=== PATIENT | male | born 1930 | race Caucasian/White ===

== ENCOUNTER 2018-04-10 15:36 | Inpatient (IN) | payer MEDICARE, OTHER ==
--- NOTE | 2018-04-10 15:44 | EDM.PDOC ---
ED HPI GENERAL MEDICAL PROBLEM - General Chief Complaint: General Stated Complaint: [facility] Time Seen by Provider: 04/10/18 15:43 Source of Information: Reports: Patient, EMS, Provider, RN Notes Reviewed - History of Present Illness INITIAL COMMENTS - FREE TEXT/NARRATIVE: 88-year-old male has been brought here by ambulance for planned hospital admission. 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 He was evaluated here in this ED, transferred to [place] in after what sounds like about a 4 day admission back to [facility] in somewhat improved condition. 2 daughters that are here state that since then he is become progressively weaker and now for the last several days just wants to lay in bed and sleep he did have a clinic visit this morning with his normal regular equal provider who did have lab work drawn. The labs did come back a while ago showing marketed dehydration, renal insufficiency with creatinine rising from normal baseline of just over 1 up to 3.2. UA and also elevated at 114. White blood count elevated at 24,800 with no obvious source for infection. On arrival to ED he is arousable but prefers to just lie with his eyes closed letting his daughters do most of the talking. He does deny headache chest or abdominal discomfort. There' s been no recent vomiting or diarrhea. - Related Data Allergies Allergy/AdvReac Type Severity Reaction Status Date / Time No Known Allergies Allergy Verified 04/10/18 15:46 Home Meds: Home Meds Allopurinol [Zyloprim] 100 mg PO DAILY 04/01/18 [History] Aspirin [Halfprin] 81 mg PO DAILY 04/01/18 [History] Cholecalciferol (Vitamin D3) [Vitamin D3] 1,000 unit PO DAILY 04/01/18 [History] Glimepiride [Amaryl] 2 mg PO DAILY 04/01/18 [History] Insulin Glargine,Hum.Rec.Anlog [Lantus Solostar] 19 units SQ DAILY 04/01/18 [ History] Multivitamin with Minerals [Multivitamins with Minerals] 1 each PO DAILY [History] Zinc Acetate [Galzin] 50 mg PO DAILY 04/01/18 [History] Insulin Aspart [Novolog] 4 unit SQ DAILY 04/10/18 [History] Metoprolol Succinate 200 mg PO DAILY 04/10/18 [History] Sennosides/Docusate Sodium [Senna Plus Tablet] 1 tab PO DAILY PRN 04/10/18 [ History] atorvaSTATin [Lipitor] 40 mg PO BEDTIME 04/10/18 [History] Past Medical History Cardiovascular History: Reports: Heart Murmur, Hypertension Genitourinary History: Reports: Renal Disease Musculoskeletal History: Reports: Gout, Other (See Below) Other Musculoskeletal History: Pagets disease Endocrine/Metabolic History: Reports: Diabetes, Type II - Past Surgical History GI Surgical History: Reports: Hernia, Inguinal Social & Family History - Caffeine Use Caffeine Use: Reports: None ED ROS GENERAL - Review of Systems Review Of Systems: See Below Constitutional: Denies: Fever, Chills HEENT: Denies: Throat Pain Respiratory: Denies: Shortness of Breath Cardiovascular: Denies: Chest Pain GI/Abdominal: Denies: Abdominal Pain, Diarrhea, Vomiting Musculoskeletal: Reports: No Symptoms Skin: Denies: Rash Neurological: Reports: Weakness (Generalized in addition to right-sided from stroke 9 days ago). Denies: Headache ED EXAM, GENERAL - Physical Exam Exam: See Below General Appearance: Other (Drowsy, arousable to voice, does answer simple questions) Eye Exam: Bilateral Eye: PERRL Throat/Mouth: Other (Oral mucosa is quite dry) Head: Atraumatic Neck: Supple. No: Lymphadenopathy (L), Lymphadenopathy (R) Respiratory/Chest: No Respiratory Distress, Lungs Clear, Normal Breath Sounds Cardiovascular: Tachycardia, Irregularly Irregular GI/Abdominal: Tender (Mild tenderness upper mid abdomen, lower abdomen nontender ) Back Exam: No: CVA Tenderness (L), CVA Tenderness (R) Extremities: No: Pedal Edema, Leg Pain, Increased Warmth, Redness Neurological: Other (Drowsy but arousable verbally, speech is mildly slurred,he does respond to simple commands.) Skin Exam: Warm, Dry, Normal Color EKG INTERPRETATION EKG Date: 04/10/18 Rhythm: A-Fib Rate (Beats/Min): 113 P-Wave: Absent QRS: Normal ST-T: Normal Course - Vital Signs Last Recorded V/S: Last Vital Signs Temp 97.6 F 04/10/18 15:41 Pulse 138 H 04/10/18 15:41 Resp 25 H 04/10/18 15:41 BP Pulse Ox 96 04/10/18 15:41 - Orders/Labs/Meds Orders: Active Orders 24 hr Category Date Time Status EKG Documentation Completion [RC] ASDIRECTED Care 04/10/18 15:58 Active Chest 1V Frontal [CR] Stat Exams 04/10/18 16:49 Taken CULTURE BLOOD [BC] Stat Lab 04/10/18 17:35 Received CULTURE BLOOD [BC] Stat Lab 04/10/18 17:40 Received LACTIC ACID [CHEM] Stat Lab 04/10/18 17:35 Received MYCOPLASMA PNEUMONIAE IGM AB [CHEM] Stat Lab 04/10/18 17:35 Received Sodium Chloride 0.45% 1,000 ml Med 04/10/18 16:15 Active IV ASDIRECTED Sodium Chloride 0.9% [Normal Saline] 1,000 ml Med 04/10/18 17:23 Active IV ONETIME cefTRIAXone [Rocephin] 2 gm Med 04/10/18 17:26 Active Sodium Chloride 0.9% [Normal Saline] 100 ml IV ONETIME Blood Culture x2 Reflex Set [OM.PC] Stat Oth 04/10/18 17:22 Ordered EKG 12 Lead [EK] Stat Ther 04/10/18 15:58 Ordered Medication Orders Sodium Chloride (Sodium Chloride 0.45%) 1,000 mls @ 500 mls/hr IV ASDIRECTED GIOVANNY Last Admin: 04/10/18 16:19 Dose: 500 mls/hr Sodium Chloride (Normal Saline) 1,000 mls @ 999 mls/hr IV ONETIME ONE Stop: 04/10/18 18:23 Ceftriaxone Sodium 2 gm/ (Sodium Chloride) 100 mls @ 100 mls/hr IV ONETIME ONE Stop: 04/10/18 18:25 Last Admin: 04/10/18 17:45 Dose: 100 mls/hr Meds: Medications Generic Name Dose Route Start Last Admin Trade Name Freq PRN Reason Stop Dose Admin Sodium Chloride 1,000 mls @ 500 mls/hr 04/10/18 16:15 04/10/18 16:19 Sodium Chloride 0.45% IV 500 mls/hr ASDIRECTED GIOVANNY Administration Sodium Chloride 1,000 mls @ 999 mls/hr 04/10/18 17:23 Normal Saline IV 04/10/18 18:23 ONETIME ONE Ceftriaxone Sodium 2 gm/ 100 mls @ 100 mls/hr 04/10/18 17:26 04/10/18 17:45 Sodium Chloride IV 04/10/18 18:25 100 mls/hr ONETIME ONE Administration Discontinued Medications Generic Name Dose Route Start Last Admin Trade Name Claudette PRN Reason Stop Dose Admin Sodium Chloride 1,000 mls @ 999 mls/hr 04/10/18 16:54 04/10/18 16:55 Normal Saline IV 04/10/18 17:54 100 mls/hr ONETIME ONE Administration - Re-Assessments/Exams Free Text/Narrative Re-Assessment/Exam: 04/10/18 18:01 We have given a 250 mL bolus of one half normal saline over the past couple of hours. We are currently running a normal saline at 100 per hour. He is moderately dehydrated with renal insufficiency. Labs have been reviewed from what was drawn at [facility]. Of note also is that his white blood count was elevated at 24,800. Her chest x-ray has been done, UA has been ordered. I discussed this with Dr. Rey, hospitalist postal service sectional center manager who does accept patient for admission. 04/10/18 18:05. Chest x-ray does show markedly elevated left diaphragm reviewing prior chest x-ray from 9 days ago diaphragm was markedly elevated at that time as well, impossible to rule out infiltrates left lower lung field. Awaiting Radiologist report. Departure - Departure Time of Disposition: 16:59 Disposition: Admitted As Inpatient 65 Condition: Serious Clinical Impression: Dehydration, Renal insufficiency - Discharge Information Forms: ED Department Discharge ED Communication - Discussed Case With (1) Discussed Case With (1): Admitting Provider (Dr Rey, decision to admit at about 17:15.) - My Orders Last 24 Hours: My Active Orders 04/10/18 15:58 EKG Documentation Completion [RC] ASDIRECTED EKG 12 Lead [EK] Stat 04/10/18 16:15 Sodium Chloride 0.45% 1,000 ml IV ASDIRECTED 04/10/18 16:49 Chest 1V Frontal [CR] Stat 04/10/18 17:26 cefTRIAXone [Rocephin] 2 gm Sodium Chloride 0.9% [Normal Saline] 100 ml IV ONETIME 04/10/18 17:35 LACTIC ACID [CHEM] Stat - Assessment/Plan Last 24 Hours: My Active Orders 04/10/18 15:58 EKG Documentation Completion [RC] ASDIRECTED EKG 12 Lead [EK] Stat 04/10/18 16:15 Sodium Chloride 0.45% 1,000 ml IV ASDIRECTED 04/10/18 16:49 Chest 1V Frontal [CR] Stat 04/10/18 17:26 cefTRIAXone [Rocephin] 2 gm Sodium Chloride 0.9% [Normal Saline] 100 ml IV ONETIME 04/10/18 17:35 LACTIC ACID [CHEM] Stat
[2018-04-10] MEDS ORDERED: Sodium Chloride 0.45% 1,000 ML IV SCH (16:15)
[2018-04-10] MEDS ORDERED: Sodium Chloride 0.9% 1,000 ML IV ONE ×2 (16:54→17:23)
[2018-04-10] MEDS ORDERED: cefTRIAXone 2 GM in Sodium Chloride 0.9% 100 ML IV ONE (17:26)
--- NOTE | 2018-04-10 19:04 | PCM.HP ---
H&P History of Present Illness - General Date of Service: 04/10/18 Admit Problem/Dx: Admission Diagnosis/Problem Admission Diagnosis/Problem Sepsis Source of Information: Provider History Limitations: Reports: No Limitations - History of Present Illness Initial Comments - Free Text/Narative: 88 year old male who apparently had a hemorrhagic stroke presents with generalized weakness, malaise. The duration is several days. 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 The patient has a history of A Fib but has had occasional bouts of a rapid ventricular rate. The patient was apparently treated in [place], the details are not currently available. However it appears that he did not require an intervention. Onset of Symptoms: Reports: Unknown/Unsure Duration of Symptoms: Reports: Day(s):, Getting Worse Location: Reports: Generalized Severity: Moderate Improves with: Reports: None Worsens with: Reports: None Context: Reports: Sick Contact (unknown) Associated Symptoms: Reports: Cough, Loss of Appetite, Shortness of Breath, Weakness suprapubic Pain Score (Numeric/FACES): 3 - Related Data Allergies/Adverse Reactions: Allergies Allergy/AdvReac Type Severity Reaction Status Date / Time No Known Allergies Allergy Verified 04/10/18 15:46 Home Medications: Home Meds Allopurinol [Zyloprim] 100 mg PO DAILY 04/01/18 [History] Aspirin [Halfprin] 81 mg PO DAILY 04/01/18 [History] Cholecalciferol (Vitamin D3) [Vitamin D3] 1,000 unit PO DAILY 04/01/18 [History] Glimepiride [Amaryl] 2 mg PO DAILY 04/01/18 [History] Insulin Glargine,Hum.Rec.Anlog [Lantus Solostar] 19 units SQ DAILY 04/01/18 [ History] Multivitamin with Minerals [Multivitamins with Minerals] 1 each PO DAILY [History] Zinc Acetate [Galzin] 50 mg PO DAILY 04/01/18 [History] Insulin Aspart [Novolog Flexpen] 4 unit SQ DAILY 04/10/18 [History] Sennosides/Docusate Sodium [Senna Plus Tablet] 1 tab PO DAILY PRN 04/10/18 [ History] atorvaSTATin [Lipitor] 40 mg PO BEDTIME 04/10/18 [History] Acetaminophen [Tylenol] 650 mg PO Q6H PRN #60 tablet 04/16/18 [Rx] Diltiazem IR [Cardizem] 30 mg PO Q6HR #120 tablet 04/16/18 [Rx] Furosemide [Lasix] 20 mg PO DAILY #40 tablet 04/16/18 [Rx] Magnesium Oxide 400 mg PO BID #30 tablet 04/16/18 [Rx] Metoprolol Tartrate [Lopressor] 100 mg PO Q12HR #60 tablet 04/16/18 [Rx] Potassium Chloride [Klor-Con M20] 20 meq PO DAILY #40 tab.er 04/16/18 [Rx] Saccharomyces Boulardii [Florastor] 500 mg PO DAILY #60 cap 04/16/18 [Rx] levoFLOXacin [Levaquin] 250 mg PO Q24H #7 tablet 04/16/18 [Rx] Past Medical History Cardiovascular History: Reports: Heart Murmur, Hypertension Other Cardiovascular History: NSTEMI Genitourinary History: Reports: Renal Disease Musculoskeletal History: Reports: Gout, Other (See Below) Other Musculoskeletal History: Pagets disease Neurological History: Reports: Other (See Below) Other Neuro History: encephalopathy Endocrine/Metabolic History: Reports: Diabetes, Type II - Past Surgical History GI Surgical History: Reports: Hernia, Inguinal Social & Family History - Tobacco Use Smoking Status *Q: Never Smoker - Caffeine Use Caffeine Use: Reports: None - Recreational Drug Use Recreational Drug Use: No H&P Review of Systems - Review of Systems: Review Of Systems: See Below General: Reports: Weakness HEENT: Reports: No Symptoms Pulmonary: Reports: No Symptoms Cardiovascular: Reports: No Symptoms Gastrointestinal: Reports: No Symptoms Genitourinary: Reports: No Symptoms Musculoskeletal: Reports: No Symptoms Skin: Reports: No Symptoms Psychiatric: Reports: Confusion Neurological: Reports: Other (hard of hearing) Hematologic/Lymphatic: Reports: No Symptoms Immunologic: Reports: No Symptoms Exam - Exam Exam: See Below - Vital Signs Vital Signs: Last Vital Signs Temp 36.4 C 04/10/18 15:41 Pulse 138 H 04/10/18 15:41 Resp 25 H 04/10/18 15:41 BP Pulse Ox 96 04/10/18 15:41 Weight: 61.235 kg - Exam Quality Assessment: Supplemental Oxygen, DVT Prophylaxis General: Lethargic HEENT: EOMI, Nares Patent, Posterior Pharynx Clear, Pupils Equal, Pupils Reactive, PERRLA Neck: Trachea Midline Lungs: Normal Respiratory Effort, Decreased Breath Sounds Cardiovascular: Regular Rate, Irregular Rhythm GI/Abdominal Exam: Normal Bowel Sounds, Soft, Non-Tender, No Organomegaly, No Distention (Male) Exam: Deferred Rectal (Males) Exam: Deferred Back Exam: Normal Inspection Extremities: Normal Inspection, Non-Tender, Normal Capillary Refill Skin: Warm Neurological: Cranial Nerves Intact Neuro Extensive - Mental Status: Slow Response to Commands Neuro Extensive - Motor, Sensory, Reflexes: CN II-XII Intact - Patient Data Lab Results Last 24 hrs: Laboratory Results - last 24 hr 04/10/18 04/10/18 Range/Units 17:35 17:57 Lactic Acid 1.9 (0.4-2.0) mmol/L Urine Color Yellow (Yellow) Urine Appearance Clear (Clear) Urine pH 6.0 (5.0-8.0) Ur Specific [place] 1.020 (1.005-1.030) Urine Protein 2+ H (Negative) Urine Glucose (UA) Trace H (Negative) Urine Ketones Negative (Negative) Urine Occult Blood 3+ H (Negative) Urine Nitrite Negative (Negative) Urine Bilirubin Negative (Negative) Urine Urobilinogen 0.2 (0.2-1.0) Ur Leukocyte Esterase Negative (Negative) Urine RBC 10-20 H (0-5) /hpf Urine WBC 0-5 (0-5) /hpf Ur Epithelial Cells 0-5 (0-5) /hpf Urine Bacteria Not seen (FEW) /hpf Urine Mucus Not seen (FEW) /hpf Result Diagrams: 04/15/18 05:45 04/16/18 05:18 - Problem List (1) Hemorrhagic cerebrovascular accident (CVA) SNOMED Code(s): 079315877 ICD Code: I61.9 - NONTRAUMATIC INTRACEREBRAL HEMORRHAGE, UNSPECIFIED Status : Acute (2) Leukocytosis SNOMED Code(s): 392134789, 096332674 ICD Code: D72.829 - ELEVATED WHITE BLOOD CELL COUNT, UNSPECIFIED Status: Acute (3) Diabetes mellitus SNOMED Code(s): 57337374 ICD Code: E11.9 - TYPE 2 DIABETES MELLITUS WITHOUT COMPLICATIONS Status: Acute (4) Gout SNOMED Code(s): 16405871 ICD Code: M10.9 - GOUT, UNSPECIFIED Status: Acute (5) Altered mental status SNOMED Code(s): 192306065 ICD Code: R41.82 - ALTERED MENTAL STATUS, UNSPECIFIED Status: Acute Qualifiers: Altered mental status type: stupor Qualified Code(s): R40.1 - Stupor (6) Renal insufficiency SNOMED Code(s): 937440460, 845770448 ICD Code: N28.9 - DISORDER OF KIDNEY AND URETER, UNSPECIFIED Status: Acute Problem List Initiated/Reviewed/Updated: Yes Orders Last 24hrs: Active Orders 24 hr Category Date Time Status Admission Status [Patient Status] [ADT] Routine ADT 04/10/18 18:26 Active EKG Documentation Completion [RC] ASDIRECTED Care 04/10/18 15:58 Active Insert Ramires Catheter [Insert Urinary Catheter] [OM.PC] Care 04/10/18 17:55 Ordered Stat Urinary Catheter Assessment [RC] ASDIRECTED Care 04/10/18 17:55 Active Chest 1V Frontal [CR] Stat Exams 04/10/18 16:49 Taken CULTURE BLOOD [BC] Stat Lab 04/10/18 17:35 Received CULTURE BLOOD [BC] Stat Lab 04/10/18 17:40 Received MYCOPLASMA PNEUMONIAE IGM AB [CHEM] Stat Lab 04/10/18 17:35 Received UA W/MICROSCOPIC [URIN] Stat Lab 04/10/18 17:57 Ordered Sodium Chloride 0.45% 1,000 ml Med 04/10/18 16:15 Active IV ASDIRECTED Blood Culture x2 Reflex Set [OM.PC] Stat Oth 04/10/18 17:22 Ordered EKG 12 Lead [EK] Stat Ther 04/10/18 15:58 Ordered Medication Orders Sodium Chloride (Sodium Chloride 0.45%) 1,000 mls @ 500 mls/hr IV ASDIRECTED GIOVANNY Last Admin: 04/10/18 16:19 Dose: 500 mls/hr Assessment/Plan Comment:: Impression: Acute mental status change with acute renal failure Query post obstruction S/P CVA 9 days [employer], hemorrhagic on low dose ASA S/P Ramires insertion for accurate I/Os A fib with controlled vent rate, ASA Infectious work up initiated; suspected infiltarte in LLL Received Rocephin empirically in the ED Chronic Diabetes mellitus, elevated BS on oral hypoglycemics HLD on Crestor Plan: IVF Continue Rocephin Follow infectious results Correct electrolytes; screen for sepsis Droplet isolation Home meds Daily labs Lopressor oral/IVP prn Consult PT/OT/CM Consult SP, confirm diet
[2018-04-10] MEDS ORDERED: Albuterol/Ipratropium 3.0-0.5 MG/3 ML Neb Soln NEB PRN (19:12)
[2018-04-10] MEDS ORDERED: 50% Dextrose in Water 50 ML Syringe IVPUSH PRN (19:13)
[2018-04-10] MEDS: Rosuvastatin 10 MG Tab PO SCH (21:53)
[2018-04-10] MEDS: Insulin Lispro 100 Unit/ML 3 ML KwikPen SUBCUT SCH (21:57)
[2018-04-10] MEDS ORDERED: Sodium Chloride 0.9% 1,000 ML IV SCH (22:45)
[2018-04-10] MEDS: Heparin Sodium 5,000 Units/ML Vial SUBCUT SCH (22:49)
[2018-04-10] MEDS: Metoprolol Tartrate 5 MG/5 ML SDV IVPUSH PRN (22:49)
[2018-04-11] MEDS: Insulin Lispro 100 Unit/ML 3 ML KwikPen SUBCUT SCH ×4 (07:27→21:39)
[2018-04-11] MEDS: Heparin Sodium 5,000 Units/ML Vial SUBCUT SCH ×3 (07:30→23:38)
[2018-04-11] MEDS ORDERED: Sodium Chloride 0.9% 1,000 ML IV SCH (07:30)
[2018-04-11] MEDS: Metoprolol Tartrate 5 MG/5 ML SDV IVPUSH PRN ×3 (07:48→23:38)
[2018-04-11] MEDS ORDERED: ZINC ACETATE 50 MG PO SCH (09:00)
--- NOTE | 2018-04-11 09:05 | CR ---
Chest: Portable view of the chest was obtained. Comparison: Previous chest x-ray of 04/10/18. Elevated left hemidiaphragm is seen. This causes atelectasis within the left base which is stable. Lungs otherwise are clear. Heart size appears within normal limits for technique. Tortuous thoracic aorta is seen. Scoliosis noted within the spine with osteopenia. Slightly abnormal mineralization of the left scapula is noted which presumably is due to old trauma. Impression: 1. Mild left basilar atelectasis. Other incidental findings. 2. Nothing acute is suspected. Diagnostic code #2
[2018-04-11] MEDS: Diltiazem 125 MG in Sodium Chloride 0.9% 100 ML IV SCH (09:45)
[2018-04-11] MEDS: Glimepiride 2 MG Tab PO SCH (10:02)
[2018-04-11] MEDS: Allopurinol 100 MG Tab PO SCH (10:02)
[2018-04-11] MEDS: Aspirin 81 MG Tab.EC PO SCH (10:02)
[2018-04-11] MEDS ORDERED: Lactated Ringers 1,000 ML IV SCH ×2 (10:30→17:45)
[2018-04-11] MEDS ORDERED: Magnesium Sulfate/Water 2 GM in Premix Bag 1 BAG IV ONE (10:30)
--- NOTE | 2018-04-11 13:32 | CR ---
Chest: Portable view of the chest was obtained. Comparison: Prior chest x-ray of 04/01/18. Elevated left hemidiaphragm is seen with mild compressive type atelectasis which is stable from prior exam. Lungs otherwise are clear. Bony structures are osteopenic. Tortuous thoracic aorta is seen. Deformity of the left scapula is seen which appears chronic. Osteopenia is noted. Degenerative change within the right shoulder is seen. Impression: 1. Stable findings as noted above. Nothing acute is seen. Diagnostic code #2
--- NOTE | 2018-04-11 17:18 | PCM.PN ---
- General Info Date of Service: 04/11/18 Functional Status: Reports: Urinating - Review of Systems General: Reports: Weakness, Fatigue HEENT: Reports: No Symptoms Pulmonary: Reports: Shortness of Breath Cardiovascular: Reports: No Symptoms Gastrointestinal: Reports: No Symptoms Genitourinary: Reports: No Symptoms Musculoskeletal: Reports: No Symptoms Skin: Reports: No Symptoms Neurological: Reports: No Symptoms Psychiatric: Reports: No Symptoms - Patient Data Vitals - Most Recent: Last Vital Signs Temp 36.7 C 04/11/18 17:00 Pulse 117 H 04/11/18 15:42 Resp 16 04/11/18 17:00 BP 116/77 04/11/18 17:00 Pulse Ox 98 04/11/18 17:00 Weight - Most Recent: 60.509 kg I&O - Last 24 Hours: Intake & Output 04/11/18 04/11/18 04/11/18 06:59 14:59 22:59 Intake Total 796 280 5118 Output Total 1250 426 360 Balance -319 -340 751 Lab Results Last 24 Hours: Laboratory Results - last 24 hr 04/10/18 04/10/18 04/10/18 Range/Units 17:35 17:35 17:57 WBC (4.23-9.07) K/mm3 RBC (4.63-6.08) M/mm3 Hgb (13.7-17.5) gm/L Hct (40.1-51.0) % MCV (79.0-92.2) fl MCH (25.7-32.2) pg MCHC (32.2-35.5) g/dl RDW Std Deviation (35.1-43.9) fL Plt Count (163-337) K/mm3 MPV (9.4-12.3) fl Neut % (Auto) (34.0-67.9) % Lymph % (Auto) (21.8-53.1) % Iron % (Auto) (5.3-12.2) % Eos % (Auto) (0.8-7.0) Baso % (Auto) (0.1-1.2) % Neut # (Auto) (1.78-5.38) K/mm3 Lymph # (Auto) (1.32-3.57) K/mm3 Iron # (Auto) (0.30-0.82) K/mm3 Eos # (Auto) (0.04-0.54) K/mm3 Baso # (Auto) (0.01-0.08) K/mm3 Manual Slide Review Sodium (136-145) mEq/L Potassium (3.5-5.1) mEq/L Chloride (98-107) mEq/L Carbon Dioxide (21-32) mEq/L Anion Gap (5-15) BUN (7-18) mg/dL Creatinine (0.7-1.3) mg/dL Est Cr Clr Drug Dosing mL/min Estimated GFR (MDRD) (>60) mL/min BUN/Creatinine Ratio (14-18) Glucose (83-115) mg/dL POC Glucose (83-110) mg/dL Hemoglobin A1c (4.50-6.20) % Lactic Acid 1.9 (0.4-2.0) mmol/L Calcium (8.5-10.1) mg/dL C-Reactive Protein (<1.0) mg/dL NT-Pro-B Natriuret Pep (0-450) pg/mL TSH 3rd Generation (0.358-3.74) uIU/mL Urine Color Yellow (Yellow) Urine Appearance Clear (Clear) Urine pH 6.0 (5.0-8.0) Ur Specific [place] 1.020 (1.005-1.030) Urine Protein 2+ H (Negative) Urine Glucose (UA) Trace H (Negative) Urine Ketones Negative (Negative) Urine Occult Blood 3+ H (Negative) Urine Nitrite Negative (Negative) Urine Bilirubin Negative (Negative) Urine Urobilinogen 0.2 (0.2-1.0) Ur Leukocyte Esterase Negative (Negative) Urine RBC 10-20 H (0-5) /hpf Urine WBC 0-5 (0-5) /hpf Ur Epithelial Cells 0-5 (0-5) /hpf Urine Bacteria Not seen (FEW) /hpf Urine Mucus Not seen (FEW) /hpf Mycoplasma pneumon IgM Negative (NEGATIVE) 04/10/18 04/11/18 04/11/18 Range/Units 19:54 05:50 05:50 WBC 18.44 H (4.23-9.07) K/mm3 RBC 4.24 L (4.63-6.08) M/mm3 Hgb 13.1 L (13.7-17.5) gm/L Hct 39.2 L (40.1-51.0) % MCV 92.5 H (79.0-92.2) fl MCH 30.9 (25.7-32.2) pg MCHC 33.4 (32.2-35.5) g/dl RDW Std Deviation 48.5 H (35.1-43.9) fL Plt Count 164 (163-337) K/mm3 MPV 10.6 (9.4-12.3) fl Neut % (Auto) 88.9 H (34.0-67.9) % Lymph % (Auto) 4.3 L (21.8-53.1) % Iron % (Auto) 6.3 (5.3-12.2) % Eos % (Auto) 0.2 L (0.8-7.0) Baso % (Auto) 0.1 (0.1-1.2) % Neut # (Auto) 16.40 H (1.78-5.38) K/mm3 Lymph # (Auto) 0.80 L (1.32-3.57) K/mm3 Iron # (Auto) 1.16 H (0.30-0.82) K/mm3 Eos # (Auto) 0.03 L (0.04-0.54) K/mm3 Baso # (Auto) 0.01 (0.01-0.08) K/mm3 Manual Slide Review Normal smear Sodium 151 H (136-145) mEq/L Potassium 3.4 L (3.5-5.1) mEq/L Chloride 114 H (98-107) mEq/L Carbon Dioxide 23 (21-32) mEq/L Anion Gap 17.4 H (5-15) BUN 103 H (7-18) mg/dL Creatinine 2.2 H (0.7-1.3) mg/dL Est Cr Clr Drug Dosing 19.48 mL/min Estimated GFR (MDRD) 28 (>60) mL/min BUN/Creatinine Ratio 46.8 H (14-18) Glucose 99 (83-115) mg/dL POC Glucose 252 H (83-110) mg/dL Hemoglobin A1c (4.50-6.20) % Lactic Acid (0.4-2.0) mmol/L Calcium 7.5 L (8.5-10.1) mg/dL C-Reactive Protein 10.6 H* (<1.0) mg/dL NT-Pro-B Natriuret Pep (0-450) pg/mL TSH 3rd Generation 0.321 L (0.358-3.74) uIU/mL Urine Color (Yellow) Urine Appearance (Clear) Urine pH (5.0-8.0) Ur Specific [place] (1.005-1.030) Urine Protein (Negative) Urine Glucose (UA) (Negative) Urine Ketones (Negative) Urine Occult Blood (Negative) Urine Nitrite (Negative) Urine Bilirubin (Negative) Urine Urobilinogen (0.2-1.0) Ur Leukocyte Esterase (Negative) Urine RBC (0-5) /hpf Urine WBC (0-5) /hpf Ur Epithelial Cells (0-5) /hpf Urine Bacteria (FEW) /hpf Urine Mucus (FEW) /hpf Mycoplasma pneumon IgM (NEGATIVE) 04/11/18 04/11/18 04/11/18 Range/Units 05:50 05:50 05:50 WBC (4.23-9.07) K/mm3 RBC (4.63-6.08) M/mm3 Hgb (13.7-17.5) gm/L Hct (40.1-51.0) % MCV (79.0-92.2) fl MCH (25.7-32.2) pg MCHC (32.2-35.5) g/dl RDW Std Deviation (35.1-43.9) fL Plt Count (163-337) K/mm3 MPV (9.4-12.3) fl Neut % (Auto) (34.0-67.9) % Lymph % (Auto) (21.8-53.1) % Iron % (Auto) (5.3-12.2) % Eos % (Auto) (0.8-7.0) Baso % (Auto) (0.1-1.2) % Neut # (Auto) (1.78-5.38) K/mm3 Lymph # (Auto) (1.32-3.57) K/mm3 Iron # (Auto) (0.30-0.82) K/mm3 Eos # (Auto) (0.04-0.54) K/mm3 Baso # (Auto) (0.01-0.08) K/mm3 Manual Slide Review Sodium (136-145) mEq/L Potassium (3.5-5.1) mEq/L Chloride (98-107) mEq/L Carbon Dioxide (21-32) mEq/L Anion Gap (5-15) BUN (7-18) mg/dL Creatinine (0.7-1.3) mg/dL Est Cr Clr Drug Dosing mL/min Estimated GFR (MDRD) (>60) mL/min BUN/Creatinine Ratio (14-18) Glucose (83-115) mg/dL POC Glucose (83-110) mg/dL Hemoglobin A1c 7.30 H (4.50-6.20) % Lactic Acid 1.5 (0.4-2.0) mmol/L Calcium (8.5-10.1) mg/dL C-Reactive Protein (<1.0) mg/dL NT-Pro-B Natriuret Pep 2589 H (0-450) pg/mL TSH 3rd Generation (0.358-3.74) uIU/mL Urine Color (Yellow) Urine Appearance (Clear) Urine pH (5.0-8.0) Ur Specific [place] (1.005-1.030) Urine Protein (Negative) Urine Glucose (UA) (Negative) Urine Ketones (Negative) Urine Occult Blood (Negative) Urine Nitrite (Negative) Urine Bilirubin (Negative) Urine Urobilinogen (0.2-1.0) Ur Leukocyte Esterase (Negative) Urine RBC (0-5) /hpf Urine WBC (0-5) /hpf Ur Epithelial Cells (0-5) /hpf Urine Bacteria (FEW) /hpf Urine Mucus (FEW) /hpf Mycoplasma pneumon IgM (NEGATIVE) 04/11/18 04/11/18 Range/Units 06:36 11:22 WBC (4.23-9.07) K/mm3 RBC (4.63-6.08) M/mm3 Hgb (13.7-17.5) gm/L Hct (40.1-51.0) % MCV (79.0-92.2) fl MCH (25.7-32.2) pg MCHC (32.2-35.5) g/dl RDW Std Deviation (35.1-43.9) fL Plt Count (163-337) K/mm3 MPV (9.4-12.3) fl Neut % (Auto) (34.0-67.9) % Lymph % (Auto) (21.8-53.1) % Iron % (Auto) (5.3-12.2) % Eos % (Auto) (0.8-7.0) Baso % (Auto) (0.1-1.2) % Neut # (Auto) (1.78-5.38) K/mm3 Lymph # (Auto) (1.32-3.57) K/mm3 Iron # (Auto) (0.30-0.82) K/mm3 Eos # (Auto) (0.04-0.54) K/mm3 Baso # (Auto) (0.01-0.08) K/mm3 Manual Slide Review Sodium (136-145) mEq/L Potassium (3.5-5.1) mEq/L Chloride (98-107) mEq/L Carbon Dioxide (21-32) mEq/L Anion Gap (5-15) BUN (7-18) mg/dL Creatinine (0.7-1.3) mg/dL Est Cr Clr Drug Dosing mL/min Estimated GFR (MDRD) (>60) mL/min BUN/Creatinine Ratio (14-18) Glucose (83-115) mg/dL POC Glucose 93 178 H (83-110) mg/dL Hemoglobin A1c (4.50-6.20) % Lactic Acid (0.4-2.0) mmol/L Calcium (8.5-10.1) mg/dL C-Reactive Protein (<1.0) mg/dL NT-Pro-B Natriuret Pep (0-450) pg/mL TSH 3rd Generation (0.358-3.74) uIU/mL Urine Color (Yellow) Urine Appearance (Clear) Urine pH (5.0-8.0) Ur Specific [place] (1.005-1.030) Urine Protein (Negative) Urine Glucose (UA) (Negative) Urine Ketones (Negative) Urine Occult Blood (Negative) Urine Nitrite (Negative) Urine Bilirubin (Negative) Urine Urobilinogen (0.2-1.0) Ur Leukocyte Esterase (Negative) Urine RBC (0-5) /hpf Urine WBC (0-5) /hpf Ur Epithelial Cells (0-5) /hpf Urine Bacteria (FEW) /hpf Urine Mucus (FEW) /hpf Mycoplasma pneumon IgM (NEGATIVE) Med Orders - Current: Current Medications Albuterol/Ipratropium (Duoneb 3.0-0.5 Mg/3 Ml) 3 ml NEB QID PRN PRN Reason: Shortness of Breath Allopurinol (Zyloprim) 100 mg PO DAILY [facility] Last Admin: 04/11/18 10:02 Dose: 100 mg Aspirin (Halfprin) 81 mg PO DAILY [facility] Last Admin: 04/11/18 10:02 Dose: 81 mg Dextrose/Water (Dextrose 50% In Water) 50 ml IVPUSH ASDIRECTED PRN PRN Reason: Hypoglycemia Glimepiride (Amaryl) 2 mg PO DAILY [facility] Last Admin: 04/11/18 10:02 Dose: 2 mg Heparin Sodium (Porcine) (Heparin Sodium) 5,000 units SUBCUT Q8H [facility] Last Admin: 04/11/18 14:49 Dose: 5,000 units Ceftriaxone Sodium 2 gm/ (Sodium Chloride) 100 mls @ 100 mls/hr IV Q24H [facility] Diltiazem HCl 125 mg/ Sodium (Chloride) 125 mls @ 5 mls/hr IV TITRATE [facility]; Protocol Last Titration: 04/11/18 17:08 Dose: 10 mg/hr, 10 mls/hr Lactated Ringer's (Ringers, Lactated) 1,000 mls @ 100 mls/hr IV ASDIRECTED [facility] Last Admin: 04/11/18 10:40 Dose: 100 mls/hr Insulin Human Lispro (Humalog) 0 unit SUBCUT QIDACANDBED [facility]; Protocol Last Admin: 04/11/18 11:31 Dose: 1 units Metoprolol Tartrate (Lopressor) 5 mg IVPUSH Q4H PRN PRN Reason: Tachycardia Last Admin: 04/11/18 15:42 Dose: 5 mg Rosuvastatin Calcium (Crestor) 10 mg PO BEDTIME [facility] Last Admin: 04/10/18 21:53 Dose: 10 mg Senna/Docusate Sodium (Senna Plus) 1 tab PO DAILY PRN PRN Reason: Constipation Discontinued Medications Sodium Chloride (Sodium Chloride 0.45%) 1,000 mls @ 500 mls/hr IV ASDIRECTED [facility] Last Admin: 04/10/18 16:19 Dose: 500 mls/hr Sodium Chloride (Normal Saline) 1,000 mls @ 999 mls/hr IV ONETIME ONE Stop: 04/10/18 17:54 Last Admin: 04/10/18 16:55 Dose: 100 mls/hr Sodium Chloride (Normal Saline) 1,000 mls @ 999 mls/hr IV ONETIME ONE Stop: 04/10/18 18:23 Last Admin: 04/10/18 19:40 Dose: Not Given Ceftriaxone Sodium 2 gm/ (Sodium Chloride) 100 mls @ 100 mls/hr IV ONETIME ONE Stop: 04/10/18 18:25 Last Admin: 04/10/18 17:45 Dose: 100 mls/hr Sodium Chloride (Normal Saline) 1,000 mls @ 100 mls/hr IV ASDIRECTED [facility] Last Admin: 04/10/18 22:49 Dose: 100 mls/hr Sodium Chloride (Normal Saline) 1,000 mls @ 75 mls/hr IV ASDIRECTED [facility] Last Admin: 04/11/18 07:47 Dose: 75 mls/hr Magnesium Sulfate 2 gm/ Premix 50 mls @ 25 mls/hr IV ONETIME ONE Stop: 04/11/18 12:29 Last Admin: 04/11/18 11:00 Dose: 25 mls/hr Non-Formulary Medication (Zinc Acetate [Galzin]) 50 mg PO DAILY [facility] - Exam Quality Assessment: Supplemental Oxygen, DVT Prophylaxis General: Alert, Oriented, Cooperative, No Acute Distress HEENT: Pupils Equal, Pupils Reactive, EOMI Neck: Trachea Midline, No JVD Lungs: Normal Respiratory Effort Cardiovascular: Regular Rate, Tachycardia GI/Abdominal Exam: Normal Bowel Sounds, Soft, Non-Tender, No Organomegaly, No Distention (Male) Exam: Deferred Back Exam: Normal Inspection Extremities: Normal Inspection, Non-Tender, Normal Capillary Refill Skin: Warm Neurological: No New Focal Deficit Psy/Mental Status: Alert, Other (hard of hearingf) - Problem List Review Problem List Initiated/Reviewed/Updated: Yes - My Orders Last 24 Hours: My Active Orders 04/10/18 17:22 Blood Culture x2 Reflex Set [OM.PC] Stat 04/10/18 17:35 CULTURE BLOOD [BC] Stat 04/10/18 17:40 CULTURE BLOOD [BC] Stat 04/10/18 17:55 Insert Ramires Catheter [Insert Urinary Catheter] [OM.PC] Stat Urinary Catheter Assessment [RC] Q2HR 08/15/18 17:57 STREP PNEUMONIAE ANTIGEN [MREF] Routine 04/10/18 19:04 Docusate Sodium/Sennosides [Senna Plus] 1 tab PO DAILY PRN 04/10/18 19:12 RT Aerosol Therapy [RC] ASDIRECTED Albuterol/Ipratropium [DuoNeb 3.0-0.5 MG/3 ML] 3 ml NEB QID PRN 04/10/18 19:13 Accu Check [Blood Glucose Check, Bedside] [RC] QIDACANDBED Dextrose 50% in Water 50 ml IVPUSH ASDIRECTED PRN 04/10/18 19:14 SCD [Sequential Compression Device] [OM.PC] Routine 04/10/18 19:16 MISC TEST Routine 04/10/18 19:17 Isolation [COMM] Routine 04/10/18 19:22 Code Status [Resuscitation Status] Routine 04/10/18 20:50 Precautions [COMM] Routine 04/10/18 21:00 Rosuvastatin [Crestor] 10 mg PO BEDTIME 04/10/18 22:00 Insulin Lispro [HumaLOG] See Protocol SUBCUT QIDACANDBED 04/10/18 22:33 Metoprolol Tartrate [Lopressor] 5 mg IVPUSH Q4H PRN 04/10/18 23:00 Heparin Sodium 5,000 units SUBCUT Q8H 04/11/18 09:00 Allopurinol [Zyloprim] 100 mg PO DAILY Aspirin [Halfprin] 81 mg PO DAILY Glimepiride [Amaryl] 2 mg PO DAILY 04/11/18 09:14 PT Evaluation and Treatment [CONS] Routine 04/11/18 09:15 OT Evaluation and Treatment [CONS] Routine 04/11/18 09:21 [employer]ATE [employer] Eval and Treat [[employer]ATE [employer]ER Evaluation and Treatment] [CONS] Routine 04/11/18 10:00 Diltiazem 125 mg Sodium Chloride 0.9% [Normal Saline] 100 ml IV TITRATE 04/11/18 10:30 Lactated Ringers [Ringers, Lactated] 1,000 ml IV ASDIRECTED 04/11/18 18:00 cefTRIAXone [Rocephin] 2 gm Sodium Chloride 0.9% [Normal Saline] 100 ml IV Q24H 04/11/[address] [place] [employer] Diet [DIET] 04/12/18 05:00 BMP [BASIC METABOLIC PANEL,BMP] [CHEM] DAILY CBC WITH AUTO DIFF [HEME] DAILY CRP [C-REACTIVE PROTEIN] [CHEM] DAILY LACTIC ACID [CHEM] DAILY PRO B-TYPE NATRIUR PEPT,BNPPRO [CHEM] DAILY 04/12/18 08:00 CXR [Chest 1V Frontal] [CR] DAILY 04/13/18 05:00 BMP [BASIC METABOLIC PANEL,BMP] [CHEM] DAILY CBC WITH AUTO DIFF [HEME] DAILY CRP [C-REACTIVE PROTEIN] [CHEM] DAILY LACTIC ACID [CHEM] DAILY 04/13/18 08:00 CXR [Chest 1V Frontal] [CR] DAILY 04/14/18 05:00 BMP [BASIC METABOLIC PANEL,BMP] [CHEM] DAILY CBC WITH AUTO DIFF [HEME] DAILY CRP [C-REACTIVE PROTEIN] [CHEM] DAILY LACTIC ACID [CHEM] DAILY 04/15/18 05:00 BMP [BASIC METABOLIC PANEL,BMP] [CHEM] DAILY CBC WITH AUTO DIFF [HEME] DAILY CRP [C-REACTIVE PROTEIN] [CHEM] DAILY LACTIC ACID [CHEM] DAILY 04/15/18 07:00 CBC W/O DIFF,HEMOGRAM [HEME] MOTH@0700 04/18/18 07:00 CBC W/O DIFF,HEMOGRAM [HEME] MOTH@0700 04/22/18 07:00 CBC W/O DIFF,HEMOGRAM [HEME] MOTH@0700 04/25/18 07:00 CBC W/O DIFF,HEMOGRAM [HEME] MOTH@0700 04/29/18 07:00 CBC W/O DIFF,HEMOGRAM [HEME] MOTH@0700 - Plan Plan:: Impression: Acute mental status change-->resolved Acute renal failure-->improving Query post obstruction, s/p Ramires S/P CVA 9 days 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
[2018-04-11] MEDS: Metoprolol Tartrate 50 MG Tab PO SCH (17:59)
[2018-04-11] MEDS: cefTRIAXone 2 GM in Sodium Chloride 0.9% 100 ML IV SCH (18:00)
[2018-04-11] MEDS: Rosuvastatin 10 MG Tab PO SCH (20:13)
[2018-04-12] MEDS: Metoprolol Tartrate 50 MG Tab PO SCH ×3 (01:27→09:25)
[2018-04-12] MEDS: Metoprolol Tartrate 5 MG/5 ML SDV IVPUSH PRN ×2 (06:03→18:57)
[2018-04-12] MEDS: Heparin Sodium 5,000 Units/ML Vial SUBCUT SCH ×3 (06:04→22:07)
[2018-04-12] MEDS: Insulin Lispro 100 Unit/ML 3 ML KwikPen SUBCUT SCH ×4 (06:13→21:29)
[2018-04-12] MEDS: Glimepiride 2 MG Tab PO SCH (08:04)
[2018-04-12] MEDS: Aspirin 81 MG Tab.EC PO SCH (08:04)
[2018-04-12] MEDS: Allopurinol 100 MG Tab PO SCH (08:05)
--- NOTE | 2018-04-12 09:48 | CR ---
Chest: Portable view of the chest was obtained. Comparison: Prior chest x-ray of 04/11/18. Elevated left hemidiaphragm is seen. Continuing left basilar atelectasis is noted. Lung markings increased on both sides which are questionably more prominent than on prior study and difficult to exclude pulmonary vascular congestion. Heart is slightly enlarged. Scoliosis and degenerative change noted within the spine. Deformity of the left scapula is seen which is chronic. Chronic right shoulder rotator cuff tear is seen. Impression: 1. Questionable increased pulmonary vascular congestion from prior study. 2. Continuing left basilar atelectasis with elevated left hemidiaphragm. 3. Other incidental findings. Diagnostic code #3
[2018-04-12] MEDS ORDERED: hydrALAZINE 20 MG/ML SDV IVPUSH PRN (10:13)
[2018-04-12] MEDS: Metoprolol Succinate 50 MG Tab.ER PO SCH (10:27)
[2018-04-12] MEDS: cefTRIAXone 2 GM in Sodium Chloride 0.9% 100 ML IV SCH (17:20)
--- NOTE | 2018-04-12 18:44 | PCM.PN ---
- General Info Date of Service: 04/12/18 Functional Status: Reports: Tolerating Diet, Urinating - Review of Systems General: Reports: Weakness HEENT: Reports: No Symptoms Pulmonary: Reports: No Symptoms Cardiovascular: Reports: No Symptoms Gastrointestinal: Reports: No Symptoms Genitourinary: Reports: No Symptoms Musculoskeletal: Reports: No Symptoms Skin: Reports: No Symptoms Neurological: Reports: No Symptoms Psychiatric: Reports: No Symptoms - Patient Data Vitals - Most Recent: Last Vital Signs Temp 36.4 C 04/12/18 16:00 Pulse 114 H 04/12/18 10:27 Resp 18 04/12/18 16:00 BP 123/73 04/12/18 16:00 Pulse Ox 93 L 04/12/18 16:00 Weight - Most Recent: 59.693 kg I&O - Last 24 Hours: Intake & Output 04/12/18 04/12/18 04/12/18 06:59 14:59 22:59 Intake Total 1163 2259 495 Output Total 690 625 175 Balance 473 1634 320 Lab Results Last 24 Hours: Laboratory Results - last 24 hr 04/10/18 04/11/18 04/11/18 Range/Units 17:57 18:30 20:13 WBC (4.23-9.07) K/mm3 RBC (4.63-6.08) M/mm3 Hgb (13.7-17.5) gm/L Hct (40.1-51.0) % MCV (79.0-92.2) fl MCH (25.7-32.2) pg MCHC (32.2-35.5) g/dl RDW Std Deviation (35.1-43.9) fL Plt Count (163-337) K/mm3 MPV (9.4-12.3) fl Neut % (Auto) (34.0-67.9) % Lymph % (Auto) (21.8-53.1) % [place] % (Auto) (5.3-12.2) % Eos % (Auto) (0.8-7.0) Baso % (Auto) (0.1-1.2) % Neut # (Auto) (1.78-5.38) K/mm3 Lymph # (Auto) (1.32-3.57) K/mm3 [place] # (Auto) (0.30-0.82) K/mm3 Eos # (Auto) (0.04-0.54) K/mm3 Baso # (Auto) (0.01-0.08) K/mm3 Manual Slide Review Sodium 152 H (136-145) mEq/L Potassium 3.8 (3.5-5.1) mEq/L Chloride 116 H (98-107) mEq/L Carbon Dioxide 25 (21-32) mEq/L Anion Gap 14.8 (5-15) BUN 81 H (7-18) mg/dL Creatinine 1.7 H (0.7-1.3) mg/dL Est Cr Clr Drug Dosing 25.21 mL/min Estimated GFR (MDRD) 38 (>60) mL/min BUN/Creatinine Ratio 47.6 H (14-18) Glucose 143 H (83-115) mg/dL POC Glucose 186 H (83-110) mg/dL Lactic Acid (0.4-2.0) mmol/L Calcium 7.9 L (8.5-10.1) mg/dL C-Reactive Protein (<1.0) mg/dL NT-Pro-B Natriuret Pep (0-450) pg/mL Urine Color Yellow (Yellow) Urine Appearance Clear (Clear) Urine pH 6.0 (5.0-8.0) Ur Specific [place] 1.020 (1.005-1.030) Urine Protein 1+ H (Negative) Urine Glucose (UA) Trace H (Negative) Urine Ketones Negative (Negative) Urine Occult Blood 2+ H (Negative) Urine Nitrite Negative (Negative) Urine Bilirubin Negative (Negative) Urine Urobilinogen 0.2 (0.2-1.0) Ur Leukocyte Esterase Negative (Negative) Urine RBC 30-40 H (0-5) /hpf Urine WBC 0-5 (0-5) /hpf Ur Epithelial Cells 0-5 (0-5) /hpf Amorphous Sediment Few H (NOT SEEN) /hpf Urine Bacteria Few (FEW) /hpf Urine Mucus Not seen (FEW) /hpf 04/12/18 04/12/18 04/12/18 Range/Units 06:07 07:34 07:34 WBC 18.72 H (4.23-9.07) K/mm3 RBC 4.58 L (4.63-6.08) M/mm3 Hgb 14.0 (13.7-17.5) gm/L Hct 42.7 (40.1-51.0) % MCV 93.2 H (79.0-92.2) fl MCH 30.6 (25.7-32.2) pg MCHC 32.8 (32.2-35.5) g/dl RDW Std Deviation 49.3 H (35.1-43.9) fL Plt Count 163 (163-337) K/mm3 MPV 11.0 (9.4-12.3) fl Neut % (Auto) 89.4 H (34.0-67.9) % Lymph % (Auto) 3.8 L (21.8-53.1) % [place] % (Auto) 6.2 (5.3-12.2) % Eos % (Auto) 0.1 L (0.8-7.0) Baso % (Auto) 0.1 (0.1-1.2) % Neut # (Auto) 16.73 H (1.78-5.38) K/mm3 Lymph # (Auto) 0.72 L (1.32-3.57) K/mm3 [place] # (Auto) 1.16 H (0.30-0.82) K/mm3 Eos # (Auto) 0.02 L (0.04-0.54) K/mm3 Baso # (Auto) 0.01 (0.01-0.08) K/mm3 Manual Slide Review Normal smear Sodium 153 H (136-145) mEq/L Potassium 3.8 (3.5-5.1) mEq/L Chloride 118 H (98-107) mEq/L Carbon Dioxide 28 (21-32) mEq/L Anion Gap 10.8 (5-15) BUN 65 H (7-18) mg/dL Creatinine 1.3 (0.7-1.3) mg/dL Est Cr Clr Drug Dosing 32.52 mL/min Estimated GFR (MDRD) 52 (>60) mL/min BUN/Creatinine Ratio 50.0 H (14-18) Glucose 159 H (83-115) mg/dL POC Glucose 171 H (83-110) mg/dL Lactic Acid (0.4-2.0) mmol/L Calcium 8.2 L (8.5-10.1) mg/dL C-Reactive Protein 7.3 H* (<1.0) mg/dL NT-Pro-B Natriuret Pep (0-450) pg/mL Urine Color (Yellow) Urine Appearance (Clear) Urine pH (5.0-8.0) Ur Specific [place] (1.005-1.030) Urine Protein (Negative) Urine Glucose (UA) (Negative) Urine Ketones (Negative) Urine Occult Blood (Negative) Urine Nitrite (Negative) Urine Bilirubin (Negative) Urine Urobilinogen (0.2-1.0) Ur Leukocyte Esterase (Negative) Urine RBC (0-5) /hpf Urine WBC (0-5) /hpf Ur Epithelial Cells (0-5) /hpf Amorphous Sediment (NOT SEEN) /hpf Urine Bacteria (FEW) /hpf Urine Mucus (FEW) /hpf 04/12/18 04/12/18 04/12/18 Range/Units 07:34 07:34 10:59 WBC (4.23-9.07) K/mm3 RBC (4.63-6.08) M/mm3 Hgb (13.7-17.5) gm/L Hct (40.1-51.0) % MCV (79.0-92.2) fl MCH (25.7-32.2) pg MCHC (32.2-35.5) g/dl RDW Std Deviation (35.1-43.9) fL Plt Count (163-337) K/mm3 MPV (9.4-12.3) fl Neut % (Auto) (34.0-67.9) % Lymph % (Auto) (21.8-53.1) % [place] % (Auto) (5.3-12.2) % Eos % (Auto) (0.8-7.0) Baso % (Auto) (0.1-1.2) % Neut # (Auto) (1.78-5.38) K/mm3 Lymph # (Auto) (1.32-3.57) K/mm3 [place] # (Auto) (0.30-0.82) K/mm3 Eos # (Auto) (0.04-0.54) K/mm3 Baso # (Auto) (0.01-0.08) K/mm3 Manual Slide Review Sodium (136-145) mEq/L Potassium (3.5-5.1) mEq/L Chloride (98-107) mEq/L Carbon Dioxide (21-32) mEq/L Anion Gap (5-15) BUN (7-18) mg/dL Creatinine (0.7-1.3) mg/dL Est Cr Clr Drug Dosing mL/min Estimated GFR (MDRD) (>60) mL/min BUN/Creatinine Ratio (14-18) Glucose (83-115) mg/dL POC Glucose 190 H (83-110) mg/dL Lactic Acid 1.9 (0.4-2.0) mmol/L Calcium (8.5-10.1) mg/dL C-Reactive Protein (<1.0) mg/dL NT-Pro-B Natriuret Pep 3769 H (0-450) pg/mL Urine Color (Yellow) Urine Appearance (Clear) Urine pH (5.0-8.0) Ur Specific [place] (1.005-1.030) Urine Protein (Negative) Urine Glucose (UA) (Negative) Urine Ketones (Negative) Urine Occult Blood (Negative) Urine Nitrite (Negative) Urine Bilirubin (Negative) Urine Urobilinogen (0.2-1.0) Ur Leukocyte Esterase (Negative) Urine RBC (0-5) /hpf Urine WBC (0-5) /hpf Ur Epithelial Cells (0-5) /hpf Amorphous Sediment (NOT SEEN) /hpf Urine Bacteria (FEW) /hpf Urine Mucus (FEW) /hpf / Range/Units 16:49 WBC (4.23-9.07) K/mm3 RBC (4.63-6.08) M/mm3 Hgb (13.7-17.5) gm/L Hct (40.1-51.0) % MCV (79.0-92.2) fl MCH (25.7-32.2) pg MCHC (32.2-35.5) g/dl RDW Std Deviation (35.1-43.9) fL Plt Count (163-337) K/mm3 MPV (9.4-12.3) fl Neut % (Auto) (34.0-67.9) % Lymph % (Auto) (21.8-53.1) % [place] % (Auto) (5.3-12.2) % Eos % (Auto) (0.8-7.0) Baso % (Auto) (0.1-1.2) % Neut # (Auto) (1.78-5.38) K/mm3 Lymph # (Auto) (1.32-3.57) K/mm3 [place] # (Auto) (0.30-0.82) K/mm3 Eos # (Auto) (0.04-0.54) K/mm3 Baso # (Auto) (0.01-0.08) K/mm3 Manual Slide Review Sodium (136-145) mEq/L Potassium (3.5-5.1) mEq/L Chloride (98-107) mEq/L Carbon Dioxide (21-32) mEq/L Anion Gap (5-15) BUN (7-18) mg/dL Creatinine (0.7-1.3) mg/dL Est Cr Clr Drug Dosing mL/min Estimated GFR (MDRD) (>60) mL/min BUN/Creatinine Ratio (14-18) Glucose (83-115) mg/dL POC Glucose 282 H (83-110) mg/dL Lactic Acid (0.4-2.0) mmol/L Calcium (8.5-10.1) mg/dL C-Reactive Protein (<1.0) mg/dL NT-Pro-B Natriuret Pep (0-450) pg/mL Urine Color (Yellow) Urine Appearance (Clear) Urine pH (5.0-8.0) Ur Specific [place] (1.005-1.030) Urine Protein (Negative) Urine Glucose (UA) (Negative) Urine Ketones (Negative) Urine Occult Blood (Negative) Urine Nitrite (Negative) Urine Bilirubin (Negative) Urine Urobilinogen (0.2-1.0) Ur Leukocyte Esterase (Negative) Urine RBC (0-5) /hpf Urine WBC (0-5) /hpf Ur Epithelial Cells (0-5) /hpf Amorphous Sediment (NOT SEEN) /hpf Urine Bacteria (FEW) /hpf Urine Mucus (FEW) /hpf Jas Results Last 24 Hours: Microbiology 04/10/18 17:35 Aerobic Blood Culture - Preliminary Blood - Venous NO GROWTH AFTER 2 DAYS Anaerobic Blood Culture - Preliminary NO GROWTH AFTER 2 DAYS 04/10/18 17:40 Aerobic Blood Culture - Preliminary Blood - Venous - Lab Draw NO GROWTH AFTER 2 DAYS Anaerobic Blood Culture - Preliminary NO GROWTH AFTER 2 DAYS 04/10/18 17:57 Streptococcus pneumoniae Antigen (M - Final Urine Med Orders - Current: Current Medications Albuterol/Ipratropium (Duoneb 3.0-0.5 Mg/3 Ml) 3 ml NEB QID PRN PRN Reason: Shortness of Breath Allopurinol (Zyloprim) 100 mg PO DAILY [facility] Last Admin: 04/12/18 08:05 Dose: 100 mg Aspirin (Halfprin) 81 mg PO DAILY [facility] Last Admin: 04/12/18 08:04 Dose: 81 mg Dextrose/Water (Dextrose 50% In Water) 50 ml IVPUSH ASDIRECTED PRN PRN Reason: Hypoglycemia Glimepiride (Amaryl) 2 mg PO DAILY [facility] Last Admin: 04/12/18 08:04 Dose: 2 mg Heparin Sodium (Porcine) (Heparin Sodium) 5,000 units SUBCUT Q8H [facility] Last Admin: 04/12/18 15:04 Dose: 5,000 units Hydralazine HCl (Apresoline) 20 mg IVPUSH Q6H PRN PRN Reason: Hypertension Ceftriaxone Sodium 2 gm/ (Sodium Chloride) 100 mls @ 100 mls/hr IV Q24H [facility] Last Admin: 04/12/18 17:20 Dose: 100 mls/hr Diltiazem HCl 125 mg/ Sodium (Chloride) 125 mls @ 5 mls/hr IV TITRATE [facility]; Protocol Last Titration: 04/11/18 17:57 Dose: 0 mg/hr, 0 mls/hr Insulin Human Lispro (Humalog) 0 unit SUBCUT QIDACANDBED [facility]; Protocol Last Admin: 04/12/18 16:52 Dose: 3 unit Metoprolol Succinate (Toprol Xl) 200 mg PO DAILY [facility] Last Admin: 04/12/18 10:27 Dose: 200 mg Metoprolol Tartrate (Lopressor) 5 mg IVPUSH Q4H PRN PRN Reason: Tachycardia Last Admin: 04/12/18 06:03 Dose: 5 mg Rosuvastatin Calcium (Crestor) 10 mg PO BEDTIME [facility] Last Admin: 04/11/18 20:13 Dose: 10 mg Senna/Docusate Sodium (Senna Plus) 1 tab PO DAILY PRN PRN Reason: Constipation Discontinued Medications Sodium Chloride (Sodium Chloride 0.45%) 1,000 mls @ 500 mls/hr IV ASDIRECTED [facility] Last Admin: 04/10/18 16:19 Dose: 500 mls/hr Sodium Chloride (Normal Saline) 1,000 mls @ 999 mls/hr IV ONETIME ONE Stop: 04/10/18 17:54 Last Admin: 04/10/18 16:55 Dose: 100 mls/hr Sodium Chloride (Normal Saline) 1,000 mls @ 999 mls/hr IV ONETIME ONE Stop: 04/10/18 18:23 Last Admin: 04/10/18 19:40 Dose: Not Given Ceftriaxone Sodium 2 gm/ (Sodium Chloride) 100 mls @ 100 mls/hr IV ONETIME ONE Stop: 04/10/18 18:25 Last Admin: 04/10/18 17:45 Dose: 100 mls/hr Sodium Chloride (Normal Saline) 1,000 mls @ 100 mls/hr IV ASDIRECTED [facility] Last Admin: 04/10/18 22:49 Dose: 100 mls/hr Sodium Chloride (Normal Saline) 1,000 mls @ 75 mls/hr IV ASDIRECTED [facility] Last Admin: 04/11/18 07:47 Dose: 75 mls/hr Lactated Ringer's (Ringers, Lactated) 1,000 mls @ 100 mls/hr IV ASDIRECTED [facility] Last Admin: 04/11/18 10:40 Dose: 100 mls/hr Magnesium Sulfate 2 gm/ Premix 50 mls @ 25 mls/hr IV ONETIME ONE Stop: 04/11/18 12:29 Last Admin: 04/11/18 11:00 Dose: 25 mls/hr Lactated Ringer's (Ringers, Lactated) 1,000 mls @ 75 mls/hr IV ASDIRECTED [facility] Last Admin: 04/11/18 21:41 Dose: 75 mls/hr Metoprolol Tartrate (Lopressor) 50 mg PO Q8H [facility] Last Admin: 04/12/18 09:25 Dose: Not Given Non-Formulary Medication (Zinc Acetate [Galzin]) 50 mg PO DAILY [facility] - Exam Quality Assessment: Supplemental Oxygen, DVT Prophylaxis General: Alert, Oriented, Cooperative, No Acute Distress HEENT: Pupils Equal, Pupils Reactive, EOMI Neck: Trachea Midline, No JVD Lungs: Normal Respiratory Effort Cardiovascular: Regular Rate, Irregular Rhythm, Tachycardia GI/Abdominal Exam: Normal Bowel Sounds, Soft, Non-Tender, No Organomegaly, No Distention (Male) Exam: Deferred Back Exam: Normal Inspection Extremities: Normal Inspection, Non-Tender, Normal Capillary Refill Skin: Warm Neurological: No New Focal Deficit Psy/Mental Status: Alert, Normal Affect, Normal Mood - Problem List Review Problem List Initiated/Reviewed/Updated: Yes - My Orders Last 24 Hours: My Active Orders 04/11/18 18:00 cefTRIAXone [Rocephin] 2 gm Sodium Chloride 0.9% [Normal Saline] 100 ml IV Q24H 04/12/18 10:13 hydrALAZINE [Apresoline] 20 mg IVPUSH Q6H PRN 04/12/18 10:15 Metoprolol Succinate [Toprol XL] 200 mg PO DAILY 04/12/18 10:17 Up to Chair [RC] ASDIRECTED 04/13/18 05:00 BMP [BASIC METABOLIC PANEL,BMP] [CHEM] DAILY CBC WITH AUTO DIFF [HEME] DAILY CRP [C-REACTIVE PROTEIN] [CHEM] DAILY LACTIC ACID [CHEM] DAILY 04/13/18 08:00 CXR [Chest 1V Frontal] [CR] DAILY 04/14/18 05:00 BMP [BASIC METABOLIC PANEL,BMP] [CHEM] DAILY CBC WITH AUTO DIFF [HEME] DAILY CRP [C-REACTIVE PROTEIN] [CHEM] DAILY LACTIC ACID [CHEM] DAILY 04/15/18 05:00 BMP [BASIC METABOLIC PANEL,BMP] [CHEM] DAILY CBC WITH AUTO DIFF [HEME] DAILY CRP [C-REACTIVE PROTEIN] [CHEM] DAILY LACTIC ACID [CHEM] DAILY 04/15/18 07:00 CBC W/O DIFF,HEMOGRAM [HEME] MOTH@0704/18/18 07:00 CBC W/O DIFF,HEMOGRAM [HEME] MOTH@69904/22/18 07:00 CBC W/O DIFF,HEMOGRAM [HEME] MOTH@0700 04/25/18 07:00 CBC W/O DIFF,HEMOGRAM [HEME] MOTH@69904/29/18 07:00 CBC W/O DIFF,HEMOGRAM [HEME] MOTH@07 - Plan Plan:: Impression: Acute mental status change-->resolved Acute renal failure-->improving; GFR 54 Query post obstruction, s/p Ramires S/P CVA 9 days [employer], hemorrhagic on low dose ASA S/P Ramires insertion for accurate I/Os A fib with RVR, ASA Infectious work up initiated; suspected infiltrate in LLL Continue ATBs Abnormal electrolytes-->correct Na, K, Mg Chronic Diabetes mellitus, elevated BS on oral hypoglycemics HLD on Crestor Plan: IVF Advance diet as tolerated Cardizem drip, adjust oral meds for improved AV jesika blockade Continue Rocephin Follow infectious results Correct electrolytes; screen for sepsis Droplet isolation Home meds--start short acting Lopressor Daily labs Lopressor oral/IVP prn Consult PT/OT/CM Consult SP, confirm diet DVT--UFH/GI prophylaxis
[2018-04-12] MEDS: Rosuvastatin 10 MG Tab PO SCH (21:29)
[2018-04-12] MEDS: Diltiazem 125 MG in Sodium Chloride 0.9% 100 ML IV SCH (21:59)
[2018-04-13] MEDS ORDERED: Diltiazem IR 30 MG Tab PO ONE (04:51)
[2018-04-13] MEDS: Heparin Sodium 5,000 Units/ML Vial SUBCUT SCH ×3 (06:10→22:02)
[2018-04-13] MEDS: Insulin Lispro 100 Unit/ML 3 ML KwikPen SUBCUT SCH ×5 (06:59→21:24)
[2018-04-13] MEDS: Aspirin 81 MG Tab.EC PO SCH (08:04)
[2018-04-13] MEDS: Allopurinol 100 MG Tab PO SCH (08:04)
[2018-04-13] MEDS: Glimepiride 2 MG Tab PO SCH (08:04)
[2018-04-13] MEDS: Metoprolol Tartrate 5 MG/5 ML SDV IVPUSH PRN (08:06)
[2018-04-13] MEDS: Metoprolol Succinate 50 MG Tab.ER PO SCH (09:50)
[2018-04-13] MEDS ORDERED: Piperacillin/Tazobactam 4.5 GM in Sodium Chloride 0.9% 100 ML IV ONE (10:00)
[2018-04-13] MEDS: Levofloxacin/Dextrose 5%-Water 750 MG in Premix Bag 1 BAG IV SCH (10:57)
[2018-04-13] MEDS: Diltiazem IR 30 MG Tab PO SCH ×2 (11:08→17:26)
[2018-04-13] MEDS: Piperacillin/Tazobactam 4.5 GM in Sodium Chloride 0.9% 100 ML IV SCH (17:30)
--- NOTE | 2018-04-13 19:50 | PCM.PN ---
- General Info Date of Service: 04/13/18 Functional Status: Reports: Pain Controlled, Tolerating Diet, Ambulating, Urinating - Review of Systems General: Reports: Weakness HEENT: Reports: No Symptoms Pulmonary: Reports: No Symptoms Cardiovascular: Reports: No Symptoms Gastrointestinal: Reports: No Symptoms Genitourinary: Reports: No Symptoms Musculoskeletal: Reports: No Symptoms Skin: Reports: No Symptoms Neurological: Reports: No Symptoms Psychiatric: Reports: No Symptoms - Patient Data Vitals - Most Recent: Last Vital Signs Temp 36.4 C 04/13/18 16:00 Pulse 116 H 04/13/18 08:06 Resp 20 04/13/18 16:00 BP 134/74 04/13/18 16:00 Pulse Ox 95 04/13/18 16:00 Weight - Most Recent: 63.639 kg I&O - Last 24 Hours: Intake & Output 04/13/18 04/13/18 04/13/18 06:59 14:59 22:59 Intake Total 36 900 1100 Output Total 460 220 Balance -[id number] Lab Results Last 24 Hours: Laboratory Results - last 24 hr 04/12/18 04/13/18 04/13/18 Range/Units 21:28 06:05 06:07 WBC 18.04 H (4.23-9.07) K/mm3 RBC 4.57 L (4.63-6.08) M/mm3 Hgb 14.0 (13.7-17.5) gm/L Hct 42.4 (40.1-51.0) % MCV 92.8 H (79.0-92.2) fl MCH 30.6 (25.7-32.2) pg MCHC 33.0 (32.2-35.5) g/dl RDW Std Deviation 47.4 H (35.1-43.9) fL Plt Count 187 (163-337) K/mm3 MPV 11.0 (9.4-12.3) fl Neut % (Auto) 89.0 H (34.0-67.9) % Lymph % (Auto) 4.2 L (21.8-53.1) % [place] % (Auto) 5.9 (5.3-12.2) % Eos % (Auto) 0.3 L (0.8-7.0) Baso % (Auto) 0.1 (0.1-1.2) % Neut # (Auto) 16.07 H (1.78-5.38) K/mm3 Lymph # (Auto) 0.75 L (1.32-3.57) K/mm3 [place] # (Auto) 1.06 H (0.30-0.82) K/mm3 Eos # (Auto) 0.05 (0.04-0.54) K/mm3 Baso # (Auto) 0.02 (0.01-0.08) K/mm3 Manual Slide Review Abnormal smear Sodium (136-145) mEq/L Potassium (3.5-5.1) mEq/L Chloride (98-107) mEq/L Carbon Dioxide (21-32) mEq/L Anion Gap (5-15) BUN (7-18) mg/dL Creatinine (0.7-1.3) mg/dL Est Cr Clr Drug Dosing mL/min Estimated GFR (MDRD) (>60) mL/min BUN/Creatinine Ratio (14-18) Glucose (83-115) mg/dL POC Glucose 237 H 153 H (83-110) mg/dL Lactic Acid (0.4-2.0) mmol/L Calcium (8.5-10.1) mg/dL Magnesium (1.8-2.4) mg/dl C-Reactive Protein (<1.0) mg/dL 04/13/18 04/13/18 04/13/18 Range/Units 06:07 06:07 06:07 WBC (4.23-9.07) K/mm3 RBC (4.63-6.08) M/mm3 Hgb (13.7-17.5) gm/L Hct (40.1-51.0) % MCV (79.0-92.2) fl MCH (25.7-32.2) pg MCHC (32.2-35.5) g/dl RDW Std Deviation (35.1-43.9) fL Plt Count (163-337) K/mm3 MPV (9.4-12.3) fl Neut % (Auto) (34.0-67.9) % Lymph % (Auto) (21.8-53.1) % [place] % (Auto) (5.3-12.2) % Eos % (Auto) (0.8-7.0) Baso % (Auto) (0.1-1.2) % Neut # (Auto) (1.78-5.38) K/mm3 Lymph # (Auto) (1.32-3.57) K/mm3 [place] # (Auto) (0.30-0.82) K/mm3 Eos # (Auto) (0.04-0.54) K/mm3 Baso # (Auto) (0.01-0.08) K/mm3 Manual Slide Review Sodium 146 H (136-145) mEq/L Potassium 3.3 L (3.5-5.1) mEq/L Chloride 113 H (98-107) mEq/L Carbon Dioxide 24 (21-32) mEq/L Anion Gap 12.3 (5-15) BUN 49 H (7-18) mg/dL Creatinine 1.1 (0.7-1.3) mg/dL Est Cr Clr Drug Dosing 39.60 mL/min Estimated GFR (MDRD) > 60 (>60) mL/min BUN/Creatinine Ratio 44.5 H (14-18) Glucose 163 H (83-115) mg/dL POC Glucose (83-110) mg/dL Lactic Acid 1.5 (0.4-2.0) mmol/L Calcium 8.2 L (8.5-10.1) mg/dL Magnesium 2.1 (1.8-2.4) mg/dl C-Reactive Protein 5.4 H* (<1.0) mg/dL 18 04/13/18 Range/Units 11:01 16:54 WBC (4.23-9.07) K/mm3 RBC (4.63-6.08) M/mm3 Hgb (13.7-17.5) gm/L Hct (40.1-51.0) % MCV (79.0-92.2) fl MCH (25.7-32.2) pg MCHC (32.2-35.5) g/dl RDW Std Deviation (35.1-43.9) fL Plt Count (163-337) K/mm3 MPV (9.4-12.3) fl Neut % (Auto) (34.0-67.9) % Lymph % (Auto) (21.8-53.1) % [place] % (Auto) (5.3-12.2) % Eos % (Auto) (0.8-7.0) Baso % (Auto) (0.1-1.2) % Neut # (Auto) (1.78-5.38) K/mm3 Lymph # (Auto) (1.32-3.57) K/mm3 [place] # (Auto) (0.30-0.82) K/mm3 Eos # (Auto) (0.04-0.54) K/mm3 Baso # (Auto) (0.01-0.08) K/mm3 Manual Slide Review Sodium (136-145) mEq/L Potassium (3.5-5.1) mEq/L Chloride (98-107) mEq/L Carbon Dioxide (21-32) mEq/L Anion Gap (5-15) BUN (7-18) mg/dL Creatinine (0.7-1.3) mg/dL Est Cr Clr Drug Dosing mL/min Estimated GFR (MDRD) (>60) mL/min BUN/Creatinine Ratio (14-18) Glucose (83-115) mg/dL POC Glucose 353 H 286 H (83-110) mg/dL Lactic Acid (0.4-2.0) mmol/L Calcium (8.5-10.1) mg/dL Magnesium (1.8-2.4) mg/dl C-Reactive Protein (<1.0) mg/dL Jas Results Last 24 Hours: Microbiology 04/10/18 17:35 Aerobic Blood Culture - Preliminary Blood - Venous NO GROWTH AFTER 3 DAYS Anaerobic Blood Culture - Preliminary NO GROWTH AFTER 3 DAYS 04/10/18 17:40 Aerobic Blood Culture - Preliminary Blood - Venous - Lab Draw NO GROWTH AFTER 3 DAYS Anaerobic Blood Culture - Preliminary NO GROWTH AFTER 3 DAYS Med Orders - Current: Current Medications Albuterol/Ipratropium (Duoneb 3.0-0.5 Mg/3 Ml) 3 ml NEB QID PRN PRN Reason: Shortness of Breath Last Admin: 04/13/18 11:27 Dose: 3 ml Allopurinol (Zyloprim) 100 mg PO DAILY GIOVANNY Last Admin: 04/13/18 08:04 Dose: 100 mg Aspirin (Halfprin) 81 mg PO DAILY GIOVANNY Last Admin: 04/13/18 08:04 Dose: 81 mg Dextrose/Water (Dextrose 50% In Water) 50 ml IVPUSH ASDIRECTED PRN PRN Reason: Hypoglycemia Diltiazem HCl (Cardizem) 30 mg PO Q6HR [facility] Last Admin: 04/13/18 17:26 Dose: 30 mg Glimepiride (Amaryl) 2 mg PO DAILY [facility] Last Admin: 04/13/18 08:04 Dose: 2 mg Heparin Sodium (Porcine) (Heparin Sodium) 5,000 units SUBCUT Q8H GIOVANNY Last Admin: 04/13/18 14:44 Dose: 5,000 units Hydralazine HCl (Apresoline) 20 mg IVPUSH Q6H PRN PRN Reason: Hypertension Last Admin: 04/13/18 02:21 Dose: 20 mg Diltiazem HCl 125 mg/ Sodium (Chloride) 125 mls @ 5 mls/hr IV TITRATE [facility]; Protocol Last Titration: 04/13/18 06:11 Dose: 0 mg/hr, 0 mls/hr Levofloxacin/Dextrose 750 mg/ (Premix) 150 mls @ 100 mls/hr IV Q48H [facility] Last Admin: 04/13/18 10:57 Dose: 100 mls/hr Piperacillin Sod/Tazobactam (Sod 4.5 gm/ Sodium Chloride) 100 mls @ 25 mls/hr IV Q8H [facility] Last Admin: 04/13/18 17:30 Dose: 25 mls/hr Insulin Glargine (Lantus Solostar) 19 units SUBCUT BEDTIME [facility] Insulin Human Lispro (Humalog) 0 unit SUBCUT QIDACANDBED [facility]; Protocol Last Admin: 04/13/18 16:56 Dose: 3 unit Metoprolol Tartrate (Lopressor) 5 mg IVPUSH Q4H PRN PRN Reason: Tachycardia Last Admin: 04/13/18 08:06 Dose: 5 mg Metoprolol Tartrate (Lopressor) 100 mg PO Q12HR [facility] Rosuvastatin Calcium (Crestor) 10 mg PO BEDTIME [facility] Last Admin: 04/12/18 21:29 Dose: 10 mg Senna/Docusate Sodium (Senna Plus) 1 tab PO DAILY PRN PRN Reason: Constipation Discontinued Medications Diltiazem HCl (Cardizem) 30 mg PO ONETIME ONE Stop: 04/13/18 04:52 Last Admin: 04/13/18 05:09 Dose: 30 mg Sodium Chloride (Sodium Chloride 0.45%) 1,000 mls @ 500 mls/hr IV ASDIRECTED [facility] Last Admin: 04/10/18 16:19 Dose: 500 mls/hr Sodium Chloride (Normal Saline) 1,000 mls @ 999 mls/hr IV ONETIME ONE Stop: 04/10/18 17:54 Last Admin: 04/10/18 16:55 Dose: 100 mls/hr Sodium Chloride (Normal Saline) 1,000 mls @ 999 mls/hr IV ONETIME ONE Stop: 04/10/18 18:23 Last Admin: 04/10/18 19:40 Dose: Not Given Ceftriaxone Sodium 2 gm/ (Sodium Chloride) 100 mls @ 100 mls/hr IV ONETIME ONE Stop: 04/10/18 18:25 Last Admin: 04/10/18 17:45 Dose: 100 mls/hr Ceftriaxone Sodium 2 gm/ (Sodium Chloride) 100 mls @ 100 mls/hr IV Q24H [facility] Last Admin: 04/12/18 17:20 Dose: 100 mls/hr Sodium Chloride (Normal Saline) 1,000 mls @ 100 mls/hr IV ASDIRECTED [facility] Last Admin: 04/10/18 22:49 Dose: 100 mls/hr Sodium Chloride (Normal Saline) 1,000 mls @ 75 mls/hr IV ASDIRECTED [facility] Last Admin: 04/11/18 07:47 Dose: 75 mls/hr Lactated Ringer's (Ringers, Lactated) 1,000 mls [facility] Last Admin: 04/11/18 10:40 Dose: 100 mls/hr Magnesium Sulfate 2 gm/ Premix 50 mls @ 25 mls/hr IV ONETIME ONE Stop: 04/11/18 12:29 Last Admin: 04/11/18 11:00 Dose: 25 mls/hr Lactated Ringer's (Ringers, Lactated) 1,000 mls @ 75 mls/hr IV ASDIRECTED [facility] Last Admin: 04/11/18 21:41 Dose: 75 mls/hr Piperacillin Sod/Tazobactam (Sod 4.5 gm/ Sodium Chloride) 100 mls @ 200 mls/hr IV ONETIME ONE Stop: 04/13/18 10:29 Last Admin: 04/13/18 10:23 Dose: 200 mls/hr Metoprolol Succinate (Toprol Xl) 200 mg PO DAILY [facility] Last Admin: 04/13/18 09:50 Dose: Not Given Metoprolol Tartrate (Lopressor) 50 mg PO Q8H [facility] Last Admin: 04/12/18 09:25 Dose: Not Given Non-Formulary Medication (Zinc Acetate [Galzin]) 50 mg PO DAILY GIOVANNY - Exam Quality Assessment: DVT Prophylaxis General: Alert, Oriented, Cooperative, No Acute Distress HEENT: Pupils Equal, Pupils Reactive, EOMI Neck: Supple, Trachea Midline, No JVD Lungs: Normal Respiratory Effort Cardiovascular: Regular Rate, Regular Rhythm GI/Abdominal Exam: Normal Bowel Sounds, Soft, Non-Tender, No Organomegaly, No Distention (Male) Exam: Deferred Back Exam: Normal Inspection, Full Range of Motion Extremities: Normal Inspection, Non-Tender, Normal Capillary Refill Skin: Warm Neurological: No New Focal Deficit Psy/Mental Status: Alert, Normal Affect, Normal Mood - Problem List Review Problem List Initiated/Reviewed/Updated: Yes - My Orders Last 24 Hours: My Active Orders 04/13/18 08:00 CXR [Chest 1V Frontal] [CR] DAILY 04/13/18 10:00 Levofloxacin/Dextrose 5%-Water [Levaquin in D5W 750 MG/150 ML] 750 mg Premix Bag 1 bag IV Q48H 04/13/18 12:00 Diltiazem IR [Cardizem] 30 mg PO Q6HR 04/13/18 18:00 Piperacillin/Tazobactam [Zosyn] 4.5 gm Sodium Chloride 0.9% [Normal Saline] 100 ml IV Q8H 04/13/18 21:00 Insulin Glarg,Human.Rec.Analog [LantUS Solostar] 19 units SUBCUT BEDTIME Metoprolol Tartrate [Lopressor] 100 mg PO Q12HR 04/14/18 05:00 BMP [BASIC METABOLIC PANEL,BMP] [CHEM] DAILY CBC WITH AUTO DIFF [HEME] DAILY CRP [C-REACTIVE PROTEIN] [CHEM] DAILY LACTIC ACID [CHEM] DAILY 04/15/18 05:00 BMP [BASIC METABOLIC PANEL,BMP] [CHEM] DAILY CBC WITH AUTO DIFF [HEME] DAILY CRP [C-REACTIVE PROTEIN] [CHEM] DAILY LACTIC ACID [CHEM] DAILY 04/15/18 07:00 CBC W/O DIFF,HEMOGRAM [HEME] MOTH@69904/18/18 07:00 CBC W/O DIFF,HEMOGRAM [HEME] MOTH@69904/22/18 07:00 CBC W/O DIFF,HEMOGRAM [HEME] MOTH@69904/25/18 07:00 CBC W/O DIFF,HEMOGRAM [HEME] MOTH@69904/29/18 07:00 CBC W/O DIFF,HEMOGRAM [HEME] MOTH@699 - Plan Plan:: Impression: Acute mental status change-->resolved Acute renal failure-->improving; GFR 54 Query post obstruction, s/p Ramires S/P CVA 9 days [employer], hemorrhagic on low dose ASA S/P Ramires insertion for accurate I/Os CHF with increase in BNP-->diurese A fib with RVR, ASA; Lopressor/Cardizem Titarte off drip Infectious work up initiated; suspected infiltrate in LLL HCAP-->changed ATB=Levoquin/Zosyn Abnormal electrolytes-->correct Na, K, Mg CRP/LA decreasing Chronic Diabetes mellitus, elevated BS on oral hypoglycemics HLD on Crestor Plan: IVF Advance diet as tolerated Cardizem drip, adjust oral meds for improved AV jesika blockade New Levoquin/Zosyn Follow infectious results Lasix drip 24-48 hours or IVP; fluid restrict by mouth Correct electrolytes; screen for sepsis Droplet isolation Home meds--start short acting Lopressor Daily labs Lopressor oral/IVP prn Consult PT/OT/CM Consult SP, confirm diet DVT--UFH/GI prophylaxis LOS>96 hours with treatment for PNA/CHF
[2018-04-13] MEDS: Metoprolol Tartrate 100 MG Tab PO SCH (20:14)
[2018-04-13] MEDS: Rosuvastatin 10 MG Tab PO SCH (20:14)
[2018-04-13] MEDS: Insulin Glargine,Human Rec. Analog 100 Units/ML 3 ML Pen SUBCUT SCH ×2 (20:15→20:25)
[2018-04-14] MEDS: Diltiazem IR 30 MG Tab PO SCH ×5 (00:41→23:33)
[2018-04-14] MEDS: Piperacillin/Tazobactam 4.5 GM in Sodium Chloride 0.9% 100 ML IV SCH ×3 (01:00→17:30)
[2018-04-14] MEDS: Heparin Sodium 5,000 Units/ML Vial SUBCUT SCH ×3 (06:09→22:33)
[2018-04-14] MEDS: Insulin Lispro 100 Unit/ML 3 ML KwikPen SUBCUT SCH ×4 (06:10→21:12)
[2018-04-14] MEDS: Glimepiride 2 MG Tab PO SCH (08:25)
[2018-04-14] MEDS: Allopurinol 100 MG Tab PO SCH (08:26)
[2018-04-14] MEDS: Aspirin 81 MG Tab.EC PO SCH (08:26)
[2018-04-14] MEDS: Metoprolol Tartrate 100 MG Tab PO SCH ×2 (08:26→20:09)
[2018-04-14] MEDS ORDERED: Belladonna Alkaloids/Opium 16.2-30 MG Supp RECTAL ONE (11:10)
[2018-04-14] MEDS: Potassium Chloride 20 MEQ Tab.ER PO SCH ×2 (11:13→20:09)
[2018-04-14] MEDS ORDERED: Furosemide 20 MG/2 ML VIAL IVPUSH ONE (12:42)
--- NOTE | 2018-04-14 14:49 | PCM.PN ---
- General Info Date of Service: 04/14/18 Subjective Update: Distended with tenderness with light palpation, will restart diza cath and give BD supp. Functional Status: Reports: Pain Controlled, Urinating (distended, restarted Diaz with good urine putput) - Review of Systems General: Reports: Weakness HEENT: Reports: No Symptoms Pulmonary: Reports: No Symptoms Cardiovascular: Reports: No Symptoms Gastrointestinal: Reports: No Symptoms Genitourinary: Reports: No Symptoms Musculoskeletal: Reports: No Symptoms Skin: Reports: No Symptoms Neurological: Reports: No Symptoms Psychiatric: Reports: No Symptoms - Patient Data Vitals - Most Recent: Last Vital Signs Temp 36.6 C 04/14/18 12:15 Pulse 96 04/14/18 08:26 Resp 20 04/14/18 12:15 BP 132/95 H 04/14/18 12:15 Pulse Ox 97 04/14/18 12:15 Weight - Most Recent: 63.639 kg I&O - Last 24 Hours: Intake & Output 04/13/18 04/14/18 04/14/18 22:59 06:59 14:59 Intake Total 1100 500 710 Output Total 510 1910 600 Balance 590 -1410 110 Lab Results Last 24 Hours: Laboratory Results - last 24 hr 04/13/18 04/13/18 04/13/18 Range/Units 11:01 16:54 20:16 WBC (4.23-9.07) K/mm3 RBC (4.63-6.08) M/mm3 Hgb (13.7-17.5) gm/L Hct (40.1-51.0) % MCV (79.0-92.2) fl MCH (25.7-32.2) pg MCHC (32.2-35.5) g/dl RDW Std Deviation (35.1-43.9) fL Plt Count (163-337) K/mm3 MPV (9.4-12.3) fl Neut % (Auto) (34.0-67.9) % Lymph % (Auto) (21.8-53.1) % Vance % (Auto) (5.3-12.2) % Eos % (Auto) (0.8-7.0) Baso % (Auto) (0.1-1.2) % Neut # (Auto) (1.78-5.38) K/mm3 Lymph # (Auto) (1.32-3.57) K/mm3 Vance # (Auto) (0.30-0.82) K/mm3 Eos # (Auto) (0.04-0.54) K/mm3 Baso # (Auto) (0.01-0.08) K/mm3 Manual Slide Review Sodium (136-145) mEq/L Potassium (3.5-5.1) mEq/L Chloride (98-107) mEq/L Carbon Dioxide (21-32) mEq/L Anion Gap (5-15) BUN (7-18) mg/dL Creatinine (0.7-1.3) mg/dL Est Cr Clr Drug Dosing mL/min Estimated GFR (MDRD) (>60) mL/min BUN/Creatinine Ratio (14-18) Glucose (83-115) mg/dL POC Glucose 353 H 286 H 328 H (83-110) mg/dL Lactic Acid (0.4-2.0) mmol/L Calcium (8.5-10.1) mg/dL C-Reactive Protein (<1.0) mg/dL NT-Pro-B Natriuret Pep (0-450) pg/mL Urine Color (Yellow) Urine Appearance (Clear) Urine pH (5.0-8.0) Ur Specific Britt (1.005-1.030) Urine Protein (Negative) Urine Glucose (UA) (Negative) Urine Ketones (Negative) Urine Occult Blood (Negative) Urine Nitrite (Negative) Urine Bilirubin (Negative) Urine Urobilinogen (0.2-1.0) Ur Leukocyte Esterase (Negative) Urine RBC (0-5) /hpf Urine WBC (0-5) /hpf Ur Epithelial Cells (0-5) /hpf Urine Bacteria (FEW) /hpf Urine Mucus (FEW) /hpf 04/13/18 04/14/18 04/14/18 Range/Units 23:27 05:45 05:45 WBC 16.31 H (4.23-9.07) K/mm3 RBC 4.27 L (4.63-6.08) M/mm3 Hgb 12.8 L (13.7-17.5) gm/L Hct 39.4 L (40.1-51.0) % MCV 92.3 H (79.0-92.2) fl MCH 30.0 (25.7-32.2) pg MCHC 32.5 (32.2-35.5) g/dl RDW Std Deviation 46.9 H (35.1-43.9) fL Plt Count 190 (163-337) K/mm3 MPV 10.7 (9.4-12.3) fl Neut % (Auto) 88.2 H (34.0-67.9) % Lymph % (Auto) 4.6 L (21.8-53.1) % Vance % (Auto) 5.6 (5.3-12.2) % Eos % (Auto) 0.6 L (0.8-7.0) Baso % (Auto) 0.1 (0.1-1.2) % Neut # (Auto) 14.37 H (1.78-5.38) K/mm3 Lymph # (Auto) 0.75 L (1.32-3.57) K/mm3 Vance # (Auto) 0.92 H (0.30-0.82) K/mm3 Eos # (Auto) 0.10 (0.04-0.54) K/mm3 Baso # (Auto) 0.02 (0.01-0.08) K/mm3 Manual Slide Review Abnormal smear Sodium 147 H (136-145) mEq/L Potassium 3.3 L (3.5-5.1) mEq/L Chloride 112 H (98-107) mEq/L Carbon Dioxide 25 (21-32) mEq/L Anion Gap 13.3 (5-15) BUN 44 H (7-18) mg/dL Creatinine 1.1 (0.7-1.3) mg/dL Est Cr Clr Drug Dosing 39.60 mL/min Estimated GFR (MDRD) > 60 (>60) mL/min BUN/Creatinine Ratio 40.0 H (14-18) Glucose 80 L (83-115) mg/dL POC Glucose 112 H (83-110) mg/dL Lactic Acid (0.4-2.0) mmol/L Calcium 8.2 L (8.5-10.1) mg/dL C-Reactive Protein 4.2 H* (<1.0) mg/dL NT-Pro-B Natriuret Pep (0-450) pg/mL Urine Color (Yellow) Urine Appearance (Clear) Urine pH (5.0-8.0) Ur Specific Britt (1.005-1.030) Urine Protein (Negative) Urine Glucose (UA) (Negative) Urine Ketones (Negative) Urine Occult Blood (Negative) Urine Nitrite (Negative) Urine Bilirubin (Negative) Urine Urobilinogen (0.2-1.0) Ur Leukocyte Esterase (Negative) Urine RBC (0-5) /hpf Urine WBC (0-5) /hpf Ur Epithelial Cells (0-5) /hpf Urine Bacteria (FEW) /hpf Urine Mucus (FEW) /hpf 04/14/18 04/14/18 04/14/18 Range/Units 05:45 05:45 06:53 WBC (4.23-9.07) K/mm3 RBC (4.63-6.08) M/mm3 Hgb (13.7-17.5) gm/L Hct (40.1-51.0) % MCV (79.0-92.2) fl MCH (25.7-32.2) pg MCHC (32.2-35.5) g/dl RDW Std Deviation (35.1-43.9) fL Plt Count (163-337) K/mm3 MPV (9.4-12.3) fl Neut % (Auto) (34.0-67.9) % Lymph % (Auto) (21.8-53.1) % Vance % (Auto) (5.3-12.2) % Eos % (Auto) (0.8-7.0) Baso % (Auto) (0.1-1.2) % Neut # (Auto) (1.78-5.38) K/mm3 Lymph # (Auto) (1.32-3.57) K/mm3 Vance # (Auto) (0.30-0.82) K/mm3 Eos # (Auto) (0.04-0.54) K/mm3 Baso # (Auto) (0.01-0.08) K/mm3 Manual Slide Review Sodium (136-145) mEq/L Potassium (3.5-5.1) mEq/L Chloride (98-107) mEq/L Carbon Dioxide (21-32) mEq/L Anion Gap (5-15) BUN (7-18) mg/dL Creatinine (0.7-1.3) mg/dL Est Cr Clr Drug Dosing mL/min Estimated GFR (MDRD) (>60) mL/min BUN/Creatinine Ratio (14-18) Glucose (83-115) mg/dL POC Glucose 69 L 117 H (83-110) mg/dL Lactic Acid 1.8 (0.4-2.0) mmol/L Calcium (8.5-10.1) mg/dL C-Reactive Protein (<1.0) mg/dL NT-Pro-B Natriuret Pep (0-450) pg/mL Urine Color (Yellow) Urine Appearance (Clear) Urine pH (5.0-8.0) Ur Specific Britt (1.005-1.030) Urine Protein (Negative) Urine Glucose (UA) (Negative) Urine Ketones (Negative) Urine Occult Blood (Negative) Urine Nitrite (Negative) Urine Bilirubin (Negative) Urine Urobilinogen (0.2-1.0) Ur Leukocyte Esterase (Negative) Urine RBC (0-5) /hpf Urine WBC (0-5) /hpf Ur Epithelial Cells (0-5) /hpf Urine Bacteria (FEW) /hpf Urine Mucus (FEW) /hpf 04/14/18 04/14/18 04/14/18 Range/Units 10:05 10:30 11:18 WBC (4.23-9.07) K/mm3 RBC (4.63-6.08) M/mm3 Hgb (13.7-17.5) gm/L Hct (40.1-51.0) % MCV (79.0-92.2) fl MCH (25.7-32.2) pg MCHC (32.2-35.5) g/dl RDW Std Deviation (35.1-43.9) fL Plt Count (163-337) K/mm3 MPV (9.4-12.3) fl Neut % (Auto) (34.0-67.9) % Lymph % (Auto) (21.8-53.1) % Vance % (Auto) (5.3-12.2) % Eos % (Auto) (0.8-7.0) Baso % (Auto) (0.1-1.2) % Neut # (Auto) (1.78-5.38) K/mm3 Lymph # (Auto) (1.32-3.57) K/mm3 Vance # (Auto) (0.30-0.82) K/mm3 Eos # (Auto) (0.04-0.54) K/mm3 Baso # (Auto) (0.01-0.08) K/mm3 Manual Slide Review Sodium (136-145) mEq/L Potassium (3.5-5.1) mEq/L Chloride (98-107) mEq/L Carbon Dioxide (21-32) mEq/L Anion Gap (5-15) BUN (7-18) mg/dL Creatinine (0.7-1.3) mg/dL Est Cr Clr Drug Dosing mL/min Estimated GFR (MDRD) (>60) mL/min BUN/Creatinine Ratio (14-18) Glucose (83-115) mg/dL POC Glucose 197 H (83-110) mg/dL Lactic Acid (0.4-2.0) mmol/L Calcium (8.5-10.1) mg/dL C-Reactive Protein (<1.0) mg/dL NT-Pro-B Natriuret Pep 4730 H (0-450) pg/mL Urine Color Yellow (Yellow) Urine Appearance Clear (Clear) Urine pH 5.5 (5.0-8.0) Ur Specific Britt 1.025 (1.005-1.030) Urine Protein 2+ H (Negative) Urine Glucose (UA) Negative (Negative) Urine Ketones Negative (Negative) Urine Occult Blood 3+ H (Negative) Urine Nitrite Negative (Negative) Urine Bilirubin Negative (Negative) Urine Urobilinogen 0.2 (0.2-1.0) Ur Leukocyte Esterase 1+ H (Negative) Urine RBC 20-30 H (0-5) /hpf Urine WBC 5-10 H (0-5) /hpf Ur Epithelial Cells 0-5 (0-5) /hpf Urine Bacteria Few (FEW) /hpf Urine Mucus Not seen (FEW) /hpf Jas Results Last 24 Hours: Microbiology 04/10/18 17:35 Aerobic Blood Culture - Preliminary Blood - Venous NO GROWTH AFTER 3 DAYS Anaerobic Blood Culture - Preliminary NO GROWTH AFTER 3 DAYS 04/10/18 17:40 Aerobic Blood Culture - Preliminary Blood - Venous - Lab Draw NO GROWTH AFTER 3 DAYS Anaerobic Blood Culture - Preliminary NO GROWTH AFTER 3 DAYS Med Orders - Current: Current Medications Albuterol/Ipratropium (Duoneb 3.0-0.5 Mg/3 Ml) 3 ml NEB QID PRN PRN Reason: Shortness of Breath Last Admin: 04/13/18 11:27 Dose: 3 ml Allopurinol (Zyloprim) 100 mg PO DAILY [facility] Last Admin: 04/14/18 08:26 Dose: 100 mg Aspirin (Halfprin) 81 mg PO DAILY [facility] Last Admin: 04/14/18 08:26 Dose: 81 mg Dextrose/Water (Dextrose 50% In Water) 50 ml IVPUSH ASDIRECTED PRN PRN Reason: Hypoglycemia Diltiazem HCl (Cardizem) 30 mg PO Q6HR [facility] Last Admin: 04/14/18 11:22 Dose: 30 mg Glimepiride (Amaryl) 2 mg PO DAILY [facility] Last Admin: 04/14/18 08:25 Dose: 2 mg Heparin Sodium (Porcine) (Heparin Sodium) 5,000 units SUBCUT Q8H [facility] Last Admin: 04/14/18 06:09 Dose: 5,000 units Hydralazine HCl (Apresoline) 20 mg IVPUSH Q6H PRN PRN Reason: Hypertension Last Admin: 04/13/18 02:21 Dose: 20 mg Diltiazem HCl 125 mg/ Sodium (Chloride) 125 mls @ 5 mls/hr IV TITRATE [facility]; Protocol Last Titration: 04/13/18 06:11 Dose: 0 mg/hr, 0 mls/hr Levofloxacin/Dextrose 750 mg/ (Premix) 150 mls @ 100 mls/hr IV Q48H [facility] Last Admin: 04/13/18 10:57 Dose: 100 mls/hr Piperacillin Sod/Tazobactam (Sod 4.5 gm/ Sodium Chloride) 100 mls @ 25 mls/hr IV Q8H [facility] Last Admin: 04/14/18 09:50 Dose: 25 mls/hr Insulin Glargine (Lantus Solostar) 19 units SUBCUT BEDTIME GIOVANNY Last Admin: 04/13/18 20:25 Dose: Not Given Insulin Human Lispro (Humalog) 0 unit SUBCUT QIDACANDBED [facility]; Protocol Last Admin: 04/14/18 11:42 Dose: 1 unit Metoprolol Tartrate (Lopressor) 5 mg IVPUSH Q4H PRN PRN Reason: Tachycardia Last Admin: 04/13/18 08:06 Dose: 5 mg Metoprolol Tartrate (Lopressor) 100 mg PO Q12HR [facility] Last Admin: 04/14/18 08:26 Dose: 100 mg Potassium Chloride (Klor-Con M20) 40 meq PO BID GIOVANNY Stop: 04/14/18 22:45 Last Admin: 04/14/18 11:13 Dose: 40 meq Rosuvastatin Calcium (Crestor) 10 mg PO BEDTIME [facility] Last Admin: 04/13/18 20:14 Dose: 10 mg Senna/Docusate Sodium (Senna Plus) 1 tab PO DAILY PRN PRN Reason: Constipation Discontinued Medications Belladonna Alkaloids/Opium (B & O Supprettes No. 15a) 1 supp RECTAL ONETIME ONE Stop: 04/14/18 11:11 Last Admin: 04/14/18 11:35 Dose: 1 supp Diltiazem HCl (Cardizem) 30 mg PO ONETIME ONE Stop: 04/13/18 04:52 Last Admin: 04/13/18 05:09 Dose: 30 mg Furosemide (Lasix) 20 mg IVPUSH NOW ONE Stop: 04/14/18 12:43 Last Admin: 04/14/18 12:50 Dose: 20 mg Sodium Chloride (Sodium Chloride 0.45%) 1,000 mls @ 500 mls/hr IV ASDIRECTED [facility] Last Admin: 04/10/18 16:19 Dose: 500 mls/hr Sodium Chloride (Normal Saline) 1,000 mls @ 999 mls/hr IV ONETIME ONE Stop: 04/10/18 17:54 Last Admin: 04/10/18 16:55 Dose: 100 mls/hr Sodium Chloride (Normal Saline) 1,000 mls @ 999 mls/hr IV ONETIME ONE Stop: 04/10/18 18:23 Last Admin: 04/10/18 19:40 Dose: Not Given Ceftriaxone Sodium 2 gm/ (Sodium Chloride) 100 mls @ 100 mls/hr IV ONETIME ONE Stop: 04/10/18 18:25 Last Admin: 04/10/18 17:45 Dose: 100 mls/hr Ceftriaxone Sodium 2 gm/ (Sodium Chloride) 100 mls @ 100 mls/hr IV Q24H [facility] Last Admin: 04/12/18 17:20 Dose: 100 mls/hr Sodium Chloride (Normal Saline) 1,000 mls @ 100 mls/hr IV ASDIRECTED [facility] Last Admin: 04/10/18 22:49 Dose: 100 mls/hr Sodium Chloride (Normal Saline) 1,000 mls @ 75 mls/hr IV ASDIRECTED [facility] Last Admin: 04/11/18 07:47 Dose: 75 mls/hr Lactated Ringer's (Ringers, Lactated) 1,000 mls @ 100 mls/hr IV ASDIRECTED [facility] Last Admin: 04/11/18 10:40 Dose: 100 mls/hr Magnesium Sulfate 2 gm/ Premix 50 mls @ 25 mls/hr IV ONETIME ONE Stop: 04/11/18 12:29 Last Admin: 04/11/18 11:00 Dose: 25 mls/hr Lactated Ringer's (Ringers, Lactated) 1,000 mls @ 75 mls/hr IV ASDIRECTED [facility] Last Admin: 04/11/18 21:41 Dose: 75 mls/hr Piperacillin Sod/Tazobactam (Sod 4.5 gm/ Sodium Chloride) 100 mls @ 200 mls/hr IV ONETIME ONE Stop: 04/13/18 10:29 Last Admin: 04/13/18 10:23 Dose: 200 mls/hr Metoprolol Succinate (Toprol Xl) 200 mg PO DAILY [facility] Last Admin: 04/13/18 09:50 Dose: Not Given Metoprolol Tartrate (Lopressor) 50 mg PO Q8H [facility] Last Admin: 04/12/18 09:25 Dose: Not Given Non-Formulary Medication (Zinc Acetate [Galzin]) 50 mg PO DAILY [facility] - Exam Quality Assessment: DVT Prophylaxis General: Alert, Oriented, Cooperative, No Acute Distress HEENT: Pupils Equal, Pupils Reactive, EOMI Neck: Trachea Midline, No JVD Lungs: Clear to Auscultation, Normal Respiratory Effort Cardiovascular: Regular Rate, Irregular Rhythm GI/Abdominal Exam: Normal Bowel Sounds, Soft, Non-Tender, No Organomegaly, No Distention (Male) Exam: Scrotal Swelling, Other (distended bladder) Back Exam: Normal Inspection Extremities: Normal Inspection, No Pedal Edema, Normal Capillary Refill Skin: Warm Neurological: No New Focal Deficit Psy/Mental Status: Alert, Normal Affect, Normal Mood - Problem List Review Problem List Initiated/Reviewed/Updated: Yes - My Orders Last 24 Hours: My Active Orders 04/13/18 18:00 Piperacillin/Tazobactam [Zosyn] 4.5 gm Sodium Chloride 0.9% [Normal Saline] 100 ml IV Q8H 04/13/18 20:01 Patient Status [ADT] Routine 04/13/18 21:00 Insulin Glarg,Human.Rec.Analog [LantUS Solostar] 19 units SUBCUT BEDTIME Metoprolol Tartrate [Lopressor] 100 mg PO Q12HR 04/14/18 10:30 CULTURE URINE [RM] Routine 04/14/18 10:45 Diaz Catheter Insertion [Insert Urinary Catheter] [OM.PC] Q24H Potassium Chloride [Klor-Con M20] 40 meq PO BID 04/14/18 10:46 Urinary Catheter Assessment [RC] Q4HR 04/15/18 05:00 BMP [BASIC METABOLIC PANEL,BMP] [CHEM] DAILY CBC WITH AUTO DIFF [HEME] DAILY CRP [C-REACTIVE PROTEIN] [CHEM] DAILY LACTIC ACID [CHEM] DAILY PRO B-TYPE NATRIUR PEPT,BNPPRO [CHEM] DAILY 04/15/18 07:00 CBC W/O DIFF,HEMOGRAM [HEME] MOTH@0700 04/16/18 05:00 PRO B-TYPE NATRIUR PEPT,BNPPRO [CHEM] DAILY 04/18/18 07:00 CBC W/O DIFF,HEMOGRAM [HEME] MOTH@0700 04/22/18 07:00 CBC W/O DIFF,HEMOGRAM [HEME] MOTH@0700 04/25/18 07:00 CBC W/O DIFF,HEMOGRAM [HEME] MOTH@0700 04/29/18 07:00 CBC W/O DIFF,HEMOGRAM [HEME] MOTH@0700 - Plan Plan:: Impression: Acute mental status change-->resolved Acute renal failure-->resolved; GFR >60 S/P CVA 9 days [employer], hemorrhagic on low dose ASA Diaz cath reinserted for post obstruction, bladder spasm treated successfully with BD supp. CHF with increase in BNP-->diurese A fib with RVR, ASA; Lopressor/Cardizem Titarte off drip Infectious work up initiated; suspected infiltrate in LLL HCAP-->changed ATB=Levoquin/Zosyn-->stopped Abnormal electrolytes-->correct Na, K, Mg as needed. CRP/LA decreasing Hypoglycemia-->decrease Lantus dose from 19 to 12, monitor Chronic Diabetes mellitus, elevated BS on oral hypoglycemics HLD on Crestor Plan: IVF Usual diet: heart healthy/ADA Cardizem drip, adjust oral meds for improved AV jesika blockade Correct electrolytes Droplet isolation--stopped Home meds--start short acting Lopressor Daily labs Lopressor oral/IVP prn Consult PT/OT/CM Consult SP, confirm diet DVT--UFH/GI prophylaxis LOS>96 hours with treatment for PNA/CHF rinary retention--replaced diaz, increased UO. LOS>96 hours with treatment for PNA/CHF
[2018-04-14] MEDS: Rosuvastatin 10 MG Tab PO SCH (20:10)
[2018-04-14] MEDS: Insulin Glargine,Human Rec. Analog 100 Units/ML 3 ML Pen SUBCUT SCH (20:15)
[2018-04-15] MEDS: Piperacillin/Tazobactam 4.5 GM in Sodium Chloride 0.9% 100 ML IV SCH ×3 (01:33→17:53)
[2018-04-15] MEDS: Insulin Lispro 100 Unit/ML 3 ML KwikPen SUBCUT SCH ×4 (06:04→21:24)
[2018-04-15] MEDS: Diltiazem IR 30 MG Tab PO SCH ×4 (06:04→23:58)
[2018-04-15] MEDS: Heparin Sodium 5,000 Units/ML Vial SUBCUT SCH ×3 (06:04→23:57)
[2018-04-15] MEDS: Glimepiride 2 MG Tab PO SCH (08:00)
[2018-04-15] MEDS: Metoprolol Tartrate 100 MG Tab PO SCH ×2 (08:01→21:05)
[2018-04-15] MEDS: Aspirin 81 MG Tab.EC PO SCH (08:03)
[2018-04-15] MEDS: Allopurinol 100 MG Tab PO SCH (08:03)
[2018-04-15] MEDS: Levofloxacin/Dextrose 5%-Water 750 MG in Premix Bag 1 BAG IV SCH (09:00)
--- NOTE | 2018-04-15 19:40 | CR ---
Chest: Portable view of the chest was obtained. Comparison: Prior chest x-ray of 04/12/18. Continuing density within the left lung base with elevated left hemidiaphragm. Mild increased density within the right base is seen. Heart is slightly enlarged. Tortuous thoracic aorta is seen. Deformity of left scapula seen which is stable. Mild scoliosis is seen. Impression: 1. Findings as noted above. No significant change from previous chest x-ray. Diagnostic code #3 I agree with preliminary report issued by [facility] ([facility] report finalized on 04/13/18, 9:22 AM Central Time)
--- NOTE | 2018-04-15 19:58 | PCM.PN ---
- General Info Date of Service: 04/15/18 Subjective Update: DC with diaz for urinary retention, will need a Urology appointment. Functional Status: Reports: Pain Controlled, Tolerating Diet, Ambulating, Urinating - Review of Systems General: Reports: No Symptoms HEENT: Reports: No Symptoms Pulmonary: Reports: No Symptoms Cardiovascular: Reports: No Symptoms Gastrointestinal: Reports: No Symptoms Genitourinary: Reports: No Symptoms Musculoskeletal: Reports: No Symptoms Skin: Reports: No Symptoms Neurological: Reports: No Symptoms Psychiatric: Reports: No Symptoms - Patient Data Vitals - Most Recent: Last Vital Signs Temp 36.6 C 04/15/18 15:00 Pulse 113 H 04/15/18 08:01 Resp 16 04/15/18 15:00 BP 123/98 H 04/15/18 15:00 Pulse Ox 94 L 04/15/18 15:00 Weight - Most Recent: 65.771 kg I&O - Last 24 Hours: Intake & Output 04/15/18 04/15/18 04/15/18 06:59 14:59 22:59 Intake Total 420 420 400 Output Total 550 600 280 Balance -130 -180 120 Lab Results Last 24 Hours: Laboratory Results - last 24 hr 04/14/18 04/15/18 04/15/18 Range/Units 20:14 05:45 05:45 WBC 16.73 H (4.23-9.07) K/mm3 RBC 4.43 L (4.63-6.08) M/mm3 Hgb 13.4 L (13.7-17.5) gm/L Hct 41.0 (40.1-51.0) % MCV 92.6 H (79.0-92.2) fl MCH 30.2 (25.7-32.2) pg MCHC 32.7 (32.2-35.5) g/dl RDW Std Deviation 47.2 H (35.1-43.9) fL Plt Count 222 (163-337) K/mm3 MPV 10.7 (9.4-12.3) fl Neut % (Auto) 86.6 H (34.0-67.9) % Lymph % (Auto) 5.4 L (21.8-53.1) % [place] % (Auto) 6.0 (5.3-12.2) % Eos % (Auto) 1.1 (0.8-7.0) Baso % (Auto) 0.1 (0.1-1.2) % Neut # (Auto) 14.48 H (1.78-5.38) K/mm3 Lymph # (Auto) 0.91 L (1.32-3.57) K/mm3 [place] # (Auto) 1.00 H (0.30-0.82) K/mm3 Eos # (Auto) 0.19 (0.04-0.54) K/mm3 Baso # (Auto) 0.01 (0.01-0.08) K/mm3 Manual Slide Review Abnormal smear Sodium 149 H (136-145) mEq/L Potassium 3.7 (3.5-5.1) mEq/L Chloride 113 H (98-107) mEq/L Carbon Dioxide 25 (21-32) mEq/L Anion Gap 14.7 (5-15) BUN 32 H (7-18) mg/dL Creatinine 1.2 (0.7-1.3) mg/dL Est Cr Clr Drug Dosing 36.30 mL/min Estimated GFR (MDRD) 57 (>60) mL/min BUN/Creatinine Ratio 26.7 H (14-18) Glucose 64 L (83-115) mg/dL POC Glucose 341 H (83-110) mg/dL Lactic Acid (0.4-2.0) mmol/L Calcium 8.0 L (8.5-10.1) mg/dL Magnesium (1.8-2.4) mg/dl C-Reactive Protein 3.2 H* (<1.0) mg/dL NT-Pro-B Natriuret Pep (0-450) pg/mL 04/15/18 04/15/18 04/15/18 Range/Units 05:45 05:45 05:45 WBC (4.23-9.07) K/mm3 RBC (4.63-6.08) M/mm3 Hgb (13.7-17.5) gm/L Hct (40.1-51.0) % MCV (79.0-92.2) fl MCH (25.7-32.2) pg MCHC (32.2-35.5) g/dl RDW Std Deviation (35.1-43.9) fL Plt Count (163-337) K/mm3 MPV (9.4-12.3) fl Neut % (Auto) (34.0-67.9) % Lymph % (Auto) (21.8-53.1) % [place] % (Auto) (5.3-12.2) % Eos % (Auto) (0.8-7.0) Baso % (Auto) (0.1-1.2) % Neut # (Auto) (1.78-5.38) K/mm3 Lymph # (Auto) (1.32-3.57) K/mm3 [place] # (Auto) (0.30-0.82) K/mm3 Eos # (Auto) (0.04-0.54) K/mm3 Baso # (Auto) (0.01-0.08) K/mm3 Manual Slide Review Sodium (136-145) mEq/L Potassium (3.5-5.1) mEq/L Chloride (98-107) mEq/L Carbon Dioxide (21-32) mEq/L Anion Gap (5-15) BUN (7-18) mg/dL Creatinine (0.7-1.3) mg/dL Est Cr Clr Drug Dosing mL/min Estimated GFR (MDRD) (>60) mL/min BUN/Creatinine Ratio (14-18) Glucose (83-115) mg/dL POC Glucose (83-110) mg/dL Lactic Acid 1.9 (0.4-2.0) mmol/L Calcium (8.5-10.1) mg/dL Magnesium 1.8 (1.8-2.4) mg/dl C-Reactive Protein (<1.0) mg/dL NT-Pro-B Natriuret Pep 5329 H (0-450) pg/mL 04/15/18 04/15/18 04/15/18 Range/Units 05:47 06:16 11:12 WBC (4.23-9.07) K/mm3 RBC (4.63-6.08) M/mm3 Hgb (13.7-17.5) gm/L Hct (40.1-51.0) % MCV (79.0-92.2) fl MCH (25.7-32.2) pg MCHC (32.2-35.5) g/dl RDW Std Deviation (35.1-43.9) fL Plt Count (163-337) K/mm3 MPV (9.4-12.3) fl Neut % (Auto) (34.0-67.9) % Lymph % (Auto) (21.8-53.1) % [place] % (Auto) (5.3-12.2) % Eos % (Auto) (0.8-7.0) Baso % (Auto) (0.1-1.2) % Neut # (Auto) (1.78-5.38) K/mm3 Lymph # (Auto) (1.32-3.57) K/mm3 [place] # (Auto) (0.30-0.82) K/mm3 Eos # (Auto) (0.04-0.54) K/mm3 Baso # (Auto) (0.01-0.08) K/mm3 Manual Slide Review Sodium (136-145) mEq/L Potassium (3.5-5.1) mEq/L Chloride (98-107) mEq/L Carbon Dioxide (21-32) mEq/L Anion Gap (5-15) BUN (7-18) mg/dL Creatinine (0.7-1.3) mg/dL Est Cr Clr Drug Dosing mL/min Estimated GFR (MDRD) (>60) mL/min BUN/Creatinine Ratio (14-18) Glucose (83-115) mg/dL POC Glucose 64 L 102 126 H (83-110) mg/dL Lactic Acid (0.4-2.0) mmol/L Calcium (8.5-10.1) mg/dL Magnesium (1.8-2.4) mg/dl C-Reactive Protein (<1.0) mg/dL NT-Pro-B Natriuret Pep (0-450) pg/mL 04/15/18 Range/Units 17:17 WBC (4.23-9.07) K/mm3 RBC (4.63-6.08) M/mm3 Hgb (13.7-17.5) gm/L Hct (40.1-51.0) % MCV (79.0-92.2) fl MCH (25.7-32.2) pg MCHC (32.2-35.5) g/dl RDW Std Deviation (35.1-43.9) fL Plt Count (163-337) K/mm3 MPV (9.4-12.3) fl Neut % (Auto) (34.0-67.9) % Lymph % (Auto) (21.8-53.1) % [place] % (Auto) (5.3-12.2) % Eos % (Auto) (0.8-7.0) Baso % (Auto) (0.1-1.2) % Neut # (Auto) (1.78-5.38) K/mm3 Lymph # (Auto) (1.32-3.57) K/mm3 [place] # (Auto) (0.30-0.82) K/mm3 Eos # (Auto) (0.04-0.54) K/mm3 Baso # (Auto) (0.01-0.08) K/mm3 Manual Slide Review Sodium (136-145) mEq/L Potassium (3.5-5.1) mEq/L Chloride (98-107) mEq/L Carbon Dioxide (21-32) mEq/L Anion Gap (5-15) BUN (7-18) mg/dL Creatinine (0.7-1.3) mg/dL Est Cr Clr Drug Dosing mL/min Estimated GFR (MDRD) (>60) mL/min BUN/Creatinine Ratio (14-18) Glucose (83-115) mg/dL POC Glucose 158 H (83-110) mg/dL Lactic Acid (0.4-2.0) mmol/L Calcium (8.5-10.1) mg/dL Magnesium (1.8-2.4) mg/dl C-Reactive Protein (<1.0) mg/dL NT-Pro-B Natriuret Pep (0-450) pg/mL Jas Results Last 24 Hours: Microbiology 04/10/18 17:35 Aerobic Blood Culture - Preliminary Blood - Venous NO GROWTH AFTER 5 DAYS Anaerobic Blood Culture - Preliminary NO GROWTH AFTER 5 DAYS 04/10/18 17:40 Aerobic Blood Culture - Preliminary Blood - Venous - Lab Draw NO GROWTH AFTER 5 DAYS Anaerobic Blood Culture - Preliminary NO GROWTH AFTER 5 DAYS 04/14/18 10:30 Urine Culture - Preliminary Urine, Diaz Cath ([place]) NO GROWTH AFTER 1 DAY Med Orders - Current: Current Medications Albuterol/Ipratropium (Duoneb 3.0-0.5 Mg/3 Ml) 3 ml NEB QID PRN PRN Reason: Shortness of Breath Last Admin: 04/13/18 11:27 Dose: 3 ml Allopurinol (Zyloprim) 100 mg PO DAILY [facility] Last Admin: 04/15/18 08:03 Dose: 100 mg Aspirin (Halfprin) 81 mg PO DAILY [facility] Last Admin: 04/15/18 08:03 Dose: 81 mg Dextrose/Water (Dextrose 50% In Water) 50 ml IVPUSH ASDIRECTED PRN PRN Reason: Hypoglycemia Diltiazem HCl (Cardizem) 30 mg PO Q6HR [facility] Last Admin: 04/15/18 17:53 Dose: 30 mg Glimepiride (Amaryl) 2 mg PO DAILY [facility] Last Admin: 04/15/18 08:00 Dose: 2 mg Heparin Sodium (Porcine) (Heparin Sodium) 5,000 units SUBCUT Q8H [facility] Last Admin: 04/15/18 15:43 Dose: 5,000 units Hydralazine HCl (Apresoline) 20 mg IVPUSH Q6H PRN PRN Reason: Hypertension Last Admin: 04/13/18 02:21 Dose: 20 mg Diltiazem HCl 125 mg/ Sodium (Chloride) 125 mls @ 5 mls/hr IV TITRATE [facility]; Protocol Last Titration: 04/13/18 06:11 Dose: 0 mg/hr, 0 mls/hr Levofloxacin/Dextrose 750 mg/ (Premix) 150 mls @ 100 mls/hr IV Q48H [facility] Last Admin: 04/15/18 09:00 Dose: 100 mls/hr Piperacillin Sod/Tazobactam (Sod 4.5 gm/ Sodium Chloride) 100 mls @ 25 mls/hr IV Q8H [facility] Last Admin: 04/15/18 17:53 Dose: 25 mls/hr Insulin Glargine (Lantus Solostar) 12 units SUBCUT BEDTIME [facility] Insulin Human Lispro (Humalog) 0 unit SUBCUT QIDACANDBED [facility]; Protocol Last Admin: 04/15/18 17:18 Dose: 1 unit Metoprolol Tartrate (Lopressor) 5 mg IVPUSH Q4H PRN PRN Reason: Tachycardia Last Admin: 04/13/18 08:06 Dose: 5 mg Metoprolol Tartrate (Lopressor) 100 mg PO Q12HR [facility] Last Admin: 04/15/18 08:01 Dose: 100 mg Rosuvastatin Calcium (Crestor) 10 mg PO BEDTIME [facility] Last Admin: 04/14/18 20:10 Dose: 10 mg Senna/Docusate Sodium (Senna Plus) 1 tab PO DAILY PRN PRN Reason: Constipation Discontinued Medications Belladonna Alkaloids/Opium (B & O Supprettes No. 15a) 1 supp RECTAL ONETIME ONE Stop: 04/14/18 11:11 Last Admin: 04/14/18 11:35 Dose: 1 supp Diltiazem HCl (Cardizem) 30 mg PO ONETIME ONE Stop: 04/13/18 04:52 Last Admin: 04/13/18 05:09 Dose: 30 mg Furosemide (Lasix) 20 mg IVPUSH NOW ONE Stop: 04/14/18 12:43 Last Admin: 04/14/18 12:50 Dose: 20 mg Sodium Chloride (Sodium Chloride 0.45%) 1,000 mls [facility] Admin: 04/10/18 16:19 Dose: 500 mls/hr Sodium Chloride (Normal Saline) 1,000 mls @ 999 mls/hr IV ONETIME ONE Stop: 04/10/18 17:54 Last Admin: 04/10/18 16:55 Dose: 100 mls/hr Sodium Chloride (Normal Saline) 1,000 mls @ 999 mls/hr IV ONETIME ONE Stop: 04/10/18 18:23 Last Admin: 04/10/18 19:40 Dose: Not Given Ceftriaxone Sodium 2 gm/ (Sodium Chloride) 100 mls @ 100 mls/hr IV ONETIME ONE Stop: 04/10/18 18:25 Last Admin: 04/10/18 17:45 Dose: 100 mls/hr Ceftriaxone Sodium 2 gm/ (Sodium Chloride) 100 mls @ 100 mls/hr IV Q24H [facility] Last Admin: 04/12/18 17:20 Dose: 100 mls/hr Sodium Chloride (Normal Saline) 1,000 mls [facility] Last Admin: 04/10/18 22:49 Dose: 100 mls/hr Sodium Chloride (Normal Saline) 1,000 mls [facility] Last Admin: 04/11/18 07:47 Dose: 75 mls/hr Lactated Ringer's (Ringers, Lactated) 1,000 mls @ 100 mls/hr IV ASDIRECTED [facility] Last Admin: 04/11/18 10:40 Dose: 100 mls/hr Magnesium Sulfate 2 gm/ Premix 50 mls @ 25 mls/hr IV ONETIME ONE Stop: 04/11/18 12:29 Last Admin: 04/11/18 11:00 Dose: 25 mls/hr Lactated Ringer's (Ringers, Lactated) 1,000 mls @ 75 mls/hr IV ASDIRECTED [facility] Last Admin: 04/11/18 21:41 Dose: 75 mls/hr Piperacillin Sod/Tazobactam (Sod 4.5 gm/ Sodium Chloride) 100 mls @ 200 mls/hr IV ONETIME ONE Stop: 04/13/18 10:29 Last Admin: 04/13/18 10:23 Dose: 200 mls/hr Insulin Detemir (Levemir) 12 unit SUBCUT BEDTIME [facility] Insulin Glargine (Lantus Solostar) 19 units SUBCUT BEDTIME [facility] Last Admin: 04/14/18 20:15 Dose: 19 units Metoprolol Succinate (Toprol Xl) 200 mg PO DAILY [facility] Last Admin: 04/13/18 09:50 Dose: Not Given Metoprolol Tartrate (Lopressor) 50 mg PO Q8H [facility] Last Admin: 04/12/18 09:25 Dose: Not Given Non-Formulary Medication (Zinc Acetate [Galzin]) 50 mg PO DAILY [facility] Potassium Chloride (Klor-Con M20) 40 meq PO BID [facility] Stop: 04/14/18 22:45 Last Admin: 04/14/18 20:09 Dose: 40 meq - Exam Quality Assessment: DVT Prophylaxis General: Cooperative, No Acute Distress HEENT: Pupils Equal, Pupils Reactive, EOMI Neck: Trachea Midline, No JVD Lungs: Normal Respiratory Effort Cardiovascular: Regular Rate, Irregular Rhythm GI/Abdominal Exam: Normal Bowel Sounds, Soft, Non-Tender, No Organomegaly, No Distention (Male) Exam: Deferred Back Exam: Normal Inspection Extremities: Normal Inspection, Non-Tender, Normal Capillary Refill Skin: Warm Neurological: No New Focal Deficit, Normal Gait, Normal Speech Psy/Mental Status: Alert, Normal Affect, Normal Mood - Problem List Review Problem List Initiated/Reviewed/Updated: Yes - My Orders Last 24 Hours: My Active Orders 04/15/18 21:00 Insulin Glarg,Human.Rec.Analog [LantUS Solostar] 12 units SUBCUT BEDTIME 04/16/18 05:00 PRO B-TYPE NATRIUR PEPT,BNPPRO [CHEM] DAILY 04/18/18 07:00 CBC W/O DIFF,HEMOGRAM [HEME] MOTH@69904/22/18 07:00 CBC W/O DIFF,HEMOGRAM [HEME] MOTH@69904/25/18 07:00 CBC W/O DIFF,HEMOGRAM [HEME] MOTH@69904/29/18 07:00 CBC W/O DIFF,HEMOGRAM [HEME] MOTH@699 - Plan Plan:: Impression: Acute mental status change-->resolved Acute renal failure-->resolved; GFR >60 S/P CVA 9 days [employer], hemorrhagic on low dose ASA Diaz cath reinserted for post obstruction, bladder spasm treated successfully with BD supp. CHF with increase in BNP-->diurese A fib with RVR, ASA; Lopressor/Cardizem Titarte off drip Infectious work up initiated; suspected infiltrate in LLL HCAP-->changed ATB=Levoquin/Zosyn-->stopped Abnormal electrolytes-->correct Na, K, Mg as needed. CRP/LA decreasing Hypoglycemia-->decrease Lantus dose from 19 to 12, monitor Chronic Diabetes mellitus, elevated BS on oral hypoglycemics HLD on Crestor Plan: IVF Usual diet: heart healthy/ADA Cardizem drip, adjust oral meds for improved AV jesika blockade Correct electrolytes Droplet isolation--stopped Home meds--start short acting Lopressor Daily labs Lopressor oral/IVP prn Consult PT/OT/CM Consult SP, confirm diet DVT--UFH/GI prophylaxis LOS>96 hours with treatment for A Fib/CHF
[2018-04-15] MEDS ORDERED: Acetaminophen 325 MG Tab PO PRN (20:06)
[2018-04-15] MEDS ORDERED: Insulin Glargine,Human Rec. Analog 100 Units/ML 3 ML Pen SUBCUT SCH (21:00)
[2018-04-15] MEDS ORDERED: Insulin Detemir 100 Units/ML 3 ML Pen SUBCUT SCH (21:00)
[2018-04-15] MEDS: Rosuvastatin 10 MG Tab PO SCH (21:05)
[2018-04-15] MEDS: Saccharomyces Boulardii (Probiotic) 250 MG Cap PO SCH (21:05)
[2018-04-16] MEDS: Piperacillin/Tazobactam 4.5 GM in Sodium Chloride 0.9% 100 ML IV SCH ×2 (02:48→10:05)
[2018-04-16] MEDS: Insulin Lispro 100 Unit/ML 3 ML KwikPen SUBCUT SCH ×2 (06:18→12:08)
[2018-04-16] MEDS: Diltiazem IR 30 MG Tab PO SCH ×2 (06:23→12:09)
[2018-04-16] MEDS: Heparin Sodium 5,000 Units/ML Vial SUBCUT SCH (06:24)
[2018-04-16] MEDS: Aspirin 81 MG Tab.EC PO SCH (08:21)
[2018-04-16] MEDS: Allopurinol 100 MG Tab PO SCH (08:21)
[2018-04-16] MEDS: Metoprolol Tartrate 100 MG Tab PO SCH (08:21)
[2018-04-16] MEDS: Glimepiride 2 MG Tab PO SCH (08:21)
[2018-04-16] MEDS: Saccharomyces Boulardii (Probiotic) 250 MG Cap PO SCH (08:21)
[2018-04-16] MEDS ORDERED: Magnesium Sulfate/Water 2 GM in Premix Bag 1 BAG IV ONE (10:14)
--- NOTE | 2018-04-16 10:37 | PCM.DCSUM1 ---
Discharge Summary - Hospital Course Free Text/Narrative:: 88 year old prsenetd with acute mental status change with multiple medical problems. This was in the setting of a recent hemorrhagic CVA. He was treated for ARF, abnormal electrolytes, HCAP, A fib with RVR, HePeF (LVEF 60-65% with grade 2 diastolic dysfunction), urinary retention. The patient completely recovered his renal function, GFR>60, Cr 0.9 on the day of discharge. Medication for A Fib, HF, adjusted of diabetic meds to name a few were addressed. Levoquin 250 mg daily for 5 days was also provided. He has lab work to be checked on Sunday, 04/19 to monitor his electrolytes. He is to proceed with his PT/OT needed podt CVA to regain his functional capacity as prescribed. Dietary restrictions: Heart Healthy/ADA. Follow up appts: PCP and urology as well as neurology as indicated. The urinary retention must be addressed, this will avoid an unnecessary risk of infection. The urology appt is early next week. HPI Initial Comments: 88 year old male who apparently had a hemorrhagic stroke presents with generalized weakness, malaise. The duration is several days. 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 The patient has a history of A Fib but has had occasional bouts of a rapid ventricular rate. The patient was apparently treated in [place], the details are not currently available. However it appears that he did not require an intervention. Diagnosis: Stroke: No - Discharge Data Discharge Date: 04/16/18 Discharge Disposition: DC/Tfer to SNF 03 Condition: Good - Discharge Diagnosis/Problem(s) (1) Acute urinary retention SNOMED Code(s): 946673314 ICD Code: R33.8 - OTHER RETENTION OF URINE Status: Acute (2) Altered mental status SNOMED Code(s): 885606877 ICD Code: R41.82 - ALTERED MENTAL STATUS, UNSPECIFIED Status: Acute Qualifiers: Altered mental status type: stupor Qualified Code(s): R40.1 - Stupor (3) Dehydration SNOMED Code(s): 03963738 ICD Code: E86.0 - DEHYDRATION Status: Acute (4) Diabetes mellitus SNOMED Code(s): 19939563 ICD Code: E11.9 - TYPE 2 DIABETES MELLITUS WITHOUT COMPLICATIONS Status: Acute (5) Hemorrhagic cerebrovascular accident (CVA) SNOMED Code(s): 158855538 ICD Code: I61.9 - NONTRAUMATIC INTRACEREBRAL HEMORRHAGE, UNSPECIFIED Status : Acute (6) Hospital acquired PNA SNOMED Code(s): 257712339 ICD Code: J18.9 - PNEUMONIA, UNSPECIFIED ORGANISM Status: Acute (7) Leukocytosis SNOMED Code(s): 804756644, 373259224 ICD Code: D72.829 - ELEVATED WHITE BLOOD CELL COUNT, UNSPECIFIED Status: Acute (8) Renal insufficiency SNOMED Code(s): 203826683, 520162648 ICD Code: N28.9 - DISORDER OF KIDNEY AND URETER, UNSPECIFIED Status: Acute - Patient Summary/Data Consults: Consultations 04/11/18 09:14 PT Evaluation and Treatment [CONS] Routine 04/11/18 09:15 OT Evaluation and Treatment [CONS] Routine 04/11/18 09:21 PATIENT ACCOUNT ANALYST Eval and Treat [PATIENT ACCOUNT ANALYST Evaluation and Treatment] [CONS] Routine - Patient Instructions Diet: Heart Healthy Diet, Diabetic Diet Activity: As Tolerated Driving: Do Not Drive Showering/Bathing: May Shower Notify Provider of: Fever, Increased Pain, Nausea and/or Vomiting - Discharge Plan *PRESCRIPTION DRUG MONITORING PROGRAM REVIEWED*: Not Applicable *COPY OF PRESCRIPTION DRUG MONITORING REPORT IN PATIENT MIGUEL: Not Applicable Prescriptions/Med Rec: Diltiazem IR [Cardizem] 30 mg PO Q6HR #120 tablet Metoprolol Tartrate [Lopressor] 100 mg PO Q12HR #60 tablet Acetaminophen [Tylenol] 650 mg PO Q6H PRN #60 tablet PRN Reason: Pain/Fever Furosemide [Lasix] 20 mg PO DAILY #40 tablet levoFLOXacin [Levaquin] 250 mg PO Q24H #7 tablet Magnesium Oxide 400 mg PO BID #30 tablet Potassium Chloride [Klor-Con M20] 20 meq PO DAILY #40 tab.er Saccharomyces Boulardii [Florastor] 500 mg PO DAILY #60 cap Home Medications: Home Meds Allopurinol [Zyloprim] 100 mg PO DAILY 04/01/18 [History] Aspirin [Halfprin] 81 mg PO DAILY 04/01/18 [History] Cholecalciferol (Vitamin D3) [Vitamin D3] 1,000 unit PO DAILY 04/01/18 [History] Glimepiride [Amaryl] 2 mg PO DAILY 04/01/18 [History] Insulin Glargine,Hum.Rec.Anlog [Lantus Solostar] 19 units SQ DAILY 04/01/18 [ History] Multivitamin with Minerals [Multivitamins with Minerals] 1 each PO DAILY [History] Zinc Acetate [Galzin] 50 mg PO DAILY 04/01/18 [History] Insulin Aspart [Novolog Flexpen] 4 unit SQ DAILY 04/10/18 [History] Sennosides/Docusate Sodium [Senna Plus Tablet] 1 tab PO DAILY PRN 04/10/18 [ History] atorvaSTATin [Lipitor] 40 mg PO BEDTIME 04/10/18 [History] Acetaminophen [Tylenol] 650 mg PO Q6H PRN #60 tablet 04/16/18 [Rx] Diltiazem IR [Cardizem] 30 mg PO Q6HR #120 tablet 04/16/18 [Rx] Furosemide [Lasix] 20 mg PO DAILY #40 tablet 04/16/18 [Rx] Magnesium Oxide 400 mg PO BID #30 tablet 04/16/18 [Rx] Metoprolol Tartrate [Lopressor] 100 mg PO Q12HR #60 tablet 04/16/18 [Rx] Potassium Chloride [Klor-Con M20] 20 meq PO DAILY #40 tab.er 04/16/18 [Rx] Saccharomyces Boulardii [Florastor] 500 mg PO DAILY #60 cap 04/16/18 [Rx] levoFLOXacin [Levaquin] 250 mg PO Q24H #7 tablet 04/16/18 [Rx] Other Amb Orders: BASIC METABOLIC PANEL,BMP [CHEM] Time Frame: 04/19/18, Facility: [facility] [employer], Location: [facility] MAGNESIUM [CHEM] Time Frame: 04/19/18, Facility: [facility], Location: [facility] Patient Handouts: Heart Failure, [id number] Forms: ED Department Discharge Referrals: Kevin Bryan MD [Primary Care Provider] - Benedict Prabhakar NP [Ordering Only Provider] - 04/23/18 9:30 am (This appt. is in [place] please arrive 30 minutes early. This appt. is for urology. appt. is Central time.) - Discharge Summary/Plan Comment DC Time >30 min.: No Discharge Summary/Plan Comment: Acute mental status change-->resolved Acute renal failure-->resolved; GFR >60 S/P CVA 9 days [employer], hemorrhagic on low dose ASA Ramires cath reinserted for post obstruction, bladder spasm treated successfully with BD supp. CHF with increase in BNP-->diurese A fib with RVR, ASA; Lopressor/Cardizem Titarte off drip Infectious work up initiated; suspected infiltrate in LLL HCAP-->changed ATB=Levoquin/Zosyn-->stopped Abnormal electrolytes-->correct Na, K, Mg as needed. CRP/LA decreasing Hypoglycemia-->decrease Lantus dose from 19 to 12, monitor Chronic Diabetes mellitus, elevated BS on oral hypoglycemics HLD on Crestor Plan: IVF Usual diet: heart healthy/ADA Cardizem drip, adjust oral meds for improved AV jesika blockade Correct electrolytes Droplet isolation--stopped Home meds--start short acting Lopressor Daily labs Lopressor oral/IVP prn Consult PT/OT/CM Consult SP, confirm diet DVT--UFH/GI prophylaxis LOS>96 hours with treatment for multiple comorbidities (ARF, A Fib with RVR, Hyponatremia, Elevated CRP/LA, abnormal CXR/HCAP, Urinary retention) - General Info Date of Service: 04/10/18 Functional Status: Reports: Pain Controlled, Tolerating Diet, Ambulating, Urinating - Review of Systems General: Reports: No Symptoms HEENT: Reports: No Symptoms Pulmonary: Reports: No Symptoms Cardiovascular: Reports: No Symptoms Gastrointestinal: Reports: No Symptoms Genitourinary: Reports: No Symptoms Musculoskeletal: Reports: No Symptoms Skin: Reports: No Symptoms Neurological: Reports: No Symptoms Psychiatric: Reports: No Symptoms - Patient Data Vitals - Most Recent: Last Vital Signs Temp 36.7 C 04/16/18 07:37 Pulse 111 H 04/16/18 08:21 Resp 22 H 04/16/18 07:37 BP 141/100 H 04/16/18 08:21 Pulse Ox 98 04/16/18 07:37 Weight - Most Recent: 63.185 kg I&O - Last 24 hours: Intake & Output 04/15/18 04/16/18 04/16/18 22:59 06:59 14:59 Intake Total 400 336 300 Output Total 430 685 325 Balance -30 -349 -25 Lab Results - Last 24 hrs: Laboratory Results - last 24 hr 04/15/18 04/15/18 04/15/18 Range/Units 11:12 17:17 21:19 Sodium (136-145) mEq/L Potassium (3.5-5.1) mEq/L Chloride (98-107) mEq/L Carbon Dioxide (21-32) mEq/L Anion Gap (5-15) BUN (7-18) mg/dL Creatinine (0.7-1.3) mg/dL Est Cr Clr Drug Dosing mL/min Estimated GFR (MDRD) (>60) mL/min BUN/Creatinine Ratio (14-18) Glucose (83-115) mg/dL POC Glucose 126 H 158 H 273 H (83-110) mg/dL Calcium (8.5-10.1) mg/dL Magnesium (1.8-2.4) mg/dl NT-Pro-B Natriuret Pep (0-450) pg/mL C.difficile 027-NAP1-B1 C. difficile Tox (PCR) 04/16/18 04/16/18 04/16/18 Range/Units 00:05 05:18 05:18 Sodium 144 (136-145) mEq/L Potassium 3.9 (3.5-5.1) mEq/L Chloride 111 H (98-107) mEq/L Carbon Dioxide 27 (21-32) mEq/L Anion Gap 9.9 (5-15) BUN 28 H (7-18) mg/dL Creatinine 1.1 (0.7-1.3) mg/dL Est Cr Clr Drug Dosing 39.60 mL/min Estimated GFR (MDRD) > 60 (>60) mL/min BUN/Creatinine Ratio 25.5 H (14-18) Glucose 68 L (83-115) mg/dL POC Glucose (83-110) mg/dL Calcium 8.0 L (8.5-10.1) mg/dL Magnesium 1.7 L (1.8-2.4) mg/dl NT-Pro-B Natriuret Pep 6450 H (0-450) pg/mL C.difficile 027-NAP1-B1 Presumptive negative C. difficile Tox (PCR) Negative TRINO Results - Last 24 hrs: Microbiology 04/14/18 10:30 Urine Culture - Preliminary Urine, Ramires Cath (Indwelling) NO GROWTH AFTER 2 DAYS 04/10/18 17:35 Aerobic Blood Culture - Preliminary Blood - Venous NO GROWTH AFTER 5 DAYS Anaerobic Blood Culture - Preliminary NO GROWTH AFTER 5 DAYS 04/10/18 17:40 Aerobic Blood Culture - Preliminary Blood - Venous - Lab Draw NO GROWTH AFTER 5 DAYS Anaerobic Blood Culture - Preliminary NO GROWTH AFTER 5 DAYS Med Orders - Current: Current Medications Acetaminophen (Tylenol) 650 mg PO Q6H PRN PRN Reason: Pain (mild 1-3) Last Admin: 04/15/18 21:06 Dose: 650 mg Albuterol/Ipratropium (Duoneb 3.0-0.5 Mg/3 Ml) 3 ml NEB QID PRN PRN Reason: Shortness of Breath Last Admin: 04/13/18 11:27 Dose: 3 ml Allopurinol (Zyloprim) 100 mg PO DAILY [facility] Last Admin: 04/16/18 08:21 Dose: 100 mg Aspirin (Halfprin) 81 mg PO DAILY [facility] Last Admin: 04/16/18 08:21 Dose: 81 mg Dextrose/Water (Dextrose 50% In Water) 50 ml IVPUSH ASDIRECTED PRN PRN Reason: Hypoglycemia Diltiazem HCl (Cardizem) 30 mg PO Q6HR [facility] Last Admin: 04/16/18 06:23 Dose: 30 mg Glimepiride (Amaryl) 2 mg PO DAILY [facility] Last Admin: 04/16/18 08:21 Dose: 2 mg Heparin Sodium (Porcine) (Heparin Sodium) 5,000 units SUBCUT Q8H [facility] Last Admin: 04/16/18 06:24 Dose: 5,000 units Hydralazine HCl (Apresoline) 20 mg IVPUSH Q6H PRN PRN Reason: Hypertension Last Admin: 04/13/18 02:21 Dose: 20 mg Levofloxacin/Dextrose 750 mg/ (Premix) 150 mls @ 100 mls/hr IV Q48H [facility] Last Admin: 04/15/18 09:00 Dose: 100 mls/hr Piperacillin Sod/Tazobactam (Sod 4.5 gm/ Sodium Chloride) 100 mls @ 25 mls/hr IV Q8H [facility] Last Admin: 04/16/18 10:05 Dose: 25 mls/hr Magnesium Sulfate 2 gm/ Premix 50 mls @ 25 mls/hr IV ONETIME ONE Stop: 04/16/18 12:13 Last Admin: 04/16/18 10:28 Dose: 25 mls/hr Insulin Glargine (Lantus Solostar) 12 units SUBCUT BEDTIME [facility] Last Admin: 04/15/18 21:20 Dose: 12 units Insulin Human Lispro (Humalog) 0 unit SUBCUT QIDACANDBED [facility]; Protocol Last Admin: 04/16/18 06:18 Dose: Not Given Metoprolol Tartrate (Lopressor) 5 mg IVPUSH Q4H PRN PRN Reason: Tachycardia Last Admin: 04/13/18 08:06 Dose: 5 mg Metoprolol Tartrate (Lopressor) 100 mg PO Q12HR [facility] Last Admin: 04/16/18 08:21 Dose: 100 mg Rosuvastatin Calcium (Crestor) 10 mg PO BEDTIME [facility] Last Admin: 04/15/18 21:05 Dose: 10 mg Saccharomyces Boulardii (Florastor) 500 mg PO DAILY [facility] Last Admin: 04/16/18 08:21 Dose: 500 mg Senna/Docusate Sodium (Senna Plus) 1 tab PO DAILY PRN PRN Reason: Constipation Discontinued Medications Belladonna Alkaloids/Opium (B & O Supprettes No. 15a) 1 supp RECTAL ONETIME ONE Stop: 04/14/18 11:11 Last Admin: 04/14/18 11:35 Dose: 1 supp Diltiazem HCl (Cardizem) 30 mg PO ONETIME ONE Stop: 04/13/18 04:52 Last Admin: 04/13/18 05:09 Dose: 30 mg Furosemide (Lasix) 20 mg IVPUSH NOW ONE Stop: 04/14/18 12:43 Last Admin: 04/14/18 12:50 Dose: 20 mg Sodium Chloride (Sodium Chloride 0.45%) 1,000 mls @ 500 mls/hr IV ASDIRECTED [facility] Last Admin: 04/10/18 16:19 Dose: 500 mls/hr Sodium Chloride (Normal Saline) 1,000 mls @ 999 mls/hr IV ONETIME ONE Stop: 04/10/18 17:54 Last Admin: 04/10/18 16:55 Dose: 100 mls/hr Sodium Chloride (Normal Saline) 1,000 mls @ 999 mls/hr IV ONETIME ONE Stop: 04/10/18 18:23 Last Admin: 04/10/18 19:40 Dose: Not Given Ceftriaxone Sodium 2 gm/ (Sodium Chloride) 100 mls @ 100 mls/hr IV ONETIME ONE Stop: 04/10/18 18:25 Last Admin: 04/10/18 17:45 Dose: 100 mls/hr Ceftriaxone Sodium 2 gm/ (Sodium Chloride) 100 mls @ 100 mls/hr IV Q24H [facility] Last Admin: 04/12/18 17:20 Dose: 100 mls/hr Sodium Chloride (Normal Saline) 1,000 mls @ 100 mls/hr IV ASDIRECTED [facility] Last Admin: 04/10/18 22:49 Dose: 100 mls/hr Sodium Chloride (Normal Saline) 1,000 mls @ 75 mls/hr IV ASDIRECTED [facility] Last Admin: 04/11/18 07:47 Dose: 75 mls/hr Diltiazem HCl 125 mg/ Sodium (Chloride) 125 mls @ 5 mls/hr IV TITRATE GIOVANNY; Protocol Last Titration: 04/13/18 06:11 Dose: 0 mg/hr, 0 mls/hr Lactated Ringer's (Ringers, Lactated) 1,000 mls @ 100 mls/hr IV ASDIRECTED [facility] Last Admin: 04/11/18 10:40 Dose: 100 mls/hr Magnesium Sulfate 2 gm/ Premix 50 mls @ 25 mls/hr IV ONETIME ONE Stop: 04/11/18 12:29 Last Admin: 04/11/18 11:00 Dose: 25 mls/hr Lactated Ringer's (Ringers, Lactated) 1,000 mls @ 75 mls/hr IV ASDIRECTED [facility] Last Admin: 04/11/18 21:41 Dose: 75 mls/hr Piperacillin Sod/Tazobactam (Sod 4.5 gm/ Sodium Chloride) 100 mls @ 200 mls/hr IV ONETIME ONE Stop: 04/13/18 10:29 Last Admin: 04/13/18 10:23 Dose: 200 mls/hr Insulin Detemir (Levemir) 12 unit SUBCUT BEDTIME [facility] Insulin Glargine (Lantus Solostar) 19 units SUBCUT BEDTIME [facility] Last Admin: 04/14/18 20:15 Dose: 19 units Metoprolol Succinate (Toprol Xl) 200 mg PO DAILY [facility] Last Admin: 04/13/18 09:50 Dose: Not Given Metoprolol Tartrate (Lopressor) 50 mg PO Q8H [facility] Last Admin: 04/12/18 09:25 Dose: Not Given Non-Formulary Medication (Zinc Acetate [Galzin]) 50 mg PO DAILY [facility] Potassium Chloride (Klor-Con M20) 40 meq PO BID [facility] Stop: 04/14/18 22:45 Last Admin: 04/14/18 20:09 Dose: 40 meq - Exam Quality Assessment: Reports: DVT Prophylaxis General: Reports: Alert, Oriented, Cooperative, No Acute Distress HEENT: Reports: Pupils Equal, Pupils Reactive, EOMI Neck: Reports: Trachea Midline, No JVD Lungs: Reports: Normal Respiratory Effort Cardiovascular: Reports: Regular Rate, Irregular Rhythm GI/Abdominal Exam: Normal Bowel Sounds, Soft, Non-Tender, No Organomegaly, No Distention (Male) Exam: Deferred Rectal (Males) Exam: Deferred Back Exam: Reports: Normal Inspection Extremities: Normal Inspection, Non-Tender, No Pedal Edema, Normal Capillary Refill Skin: Reports: Warm, Dry Neurological: Reports: No New Focal Deficit, Normal Gait, Normal Speech Psy/Mental Status: Reports: Alert, Normal Affect, Normal Mood
[2018-04-16] MEDS ORDERED: Furosemide 20 MG/2 ML VIAL IVPUSH ONE (11:54)
[2018-04-16] MEDS ORDERED: Magnesium Oxide 400 MG Tab PO SCH (21:00)
[2018-04-17] MEDS ORDERED: Potassium Chloride 20 MEQ Tab.ER PO SCH (09:00)
[2018-04-17] MEDS ORDERED: Furosemide 20 MG Tab PO SCH (09:00)
[2018-04-17] MEDS ORDERED: Levofloxacin 250 MG Tab PO SCH (10:00)
== END 2018-04-16 14:20 | DRG 194 ==
LOC: JD.ED 15:36 → JD.ICU 18:26
PROVIDERS: ADMIT Internal Medicine Cardiovascular Disease; ATTEND Internal Medicine Cardiovascular Disease
DX: N28.9 Disorder of kidney and ureter, unspecified (principal); J18.9 Pneumonia, unspecified organism; I69.354 Hemiplegia and hemiparesis following cerebral infarction affecting left non-dominant side; I10 Essential (primary) hypertension; N17.9 Acute kidney failure, unspecified; E11.9 Type 2 diabetes mellitus without complications; I13.0 Hypertensive heart and chronic kidney disease with heart failure and stage 1 through stage 4 chronic kidney disease, or unspecified chronic kidney disease; E86.0 Dehydration; E11.22 Type 2 diabetes mellitus with diabetic chronic kidney disease; N18.2 Chronic kidney disease, stage 2 (mild); R01.1 Cardiac murmur, unspecified; R53.1 Weakness; R00.0 Tachycardia, unspecified; I48.91 Unspecified atrial fibrillation; M10.9 Gout, unspecified; E78.5 Hyperlipidemia, unspecified; I50.9 Heart failure, unspecified; R33.9 Retention of urine, unspecified; Y95 Nosocomial condition; I25.2 Old myocardial infarction; Z79.4 Long term (current) use of insulin; Z79.899 Other long term (current) drug therapy; Z79.82 Long term (current) use of aspirin; Z66 Do not resuscitate
CPT/HCPCS: 36415; 71045; 81001 ×2; 83605; 86738; 87040 ×2; 87899; 93005; 96361; 96365; 99285; J0696; J7030 ×2; J7040; 51701; 51702; 51798; 80048; 82962; 83036; 83735; 83880; 84443; 85025; 86140; 87086; 87493; 92610-GN; 93010; 94640; 97110-GO; 97110-GP; 97162-GP; 97167-GO; 97530-GO; 97530-GP; A9270; A9270-GY; J0360; J1644; J1815; J1815-GY; J1956; J2543; J3475; J3490; J7120; J7620-GY

== ENCOUNTER 2018-04-26 12:28 | Emergency (ER) | payer MEDICARE, OTHER ==
--- NOTE | 2018-04-26 12:59 | EDM.PDOC ---
ED HPI GENERAL MEDICAL PROBLEM - General Chief Complaint: Genitourinary Problem Stated Complaint: SENT BY [facility] Time Seen by Provider: 04/26/18 12:54 Source of Information: Reports: Patient, Family (daughter and grand daughter) History Limitations: Reports: Altered Mental Status, Other (Patient has had a previous CVA with right hemiparesis. She no longer walks.) - History of Present Illness INITIAL COMMENTS - FREE TEXT/NARRATIVE: Patient is sent to the ED for evaluation of large right inguinal hernia. Apparently the hernia has been present for a lengthy period of time but apparently he's been complaining of pain in the area for the last 2 days. Ultrasound was performed by Stacie Kaiser at [facility] yesterday. The report is that of a low numerous peristalsing loops of bowel within the right hemiscrotum. Recurrence earned arose as to whether or not there was incarceration to cause his pain syndrome. He is eating and drinking without vomiting. In fact it appears that he ate lunch at the jail about 11:30 today. 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 He was recently to the urologist because of chronic indwelling Ramires catheter but attempts to leave the Ramires out failed and he is not able to pass his urine on his own and therefore the Ramires has been replaced. He also does not usually have control of his bowel and bladder. Just finished a course of Levaquin on the of this month for urinary tract infection. His med list shows that he is on sennosides for regularity of his bowels. Patient is type II diabetic and currently on oral medications and insulin. Onset: Unknown/Unsure Onset Date: 04/24/18 Duration: Day(s):, Getting Worse (Apparently getting worse by history although there is no nausea vomiting.) Location: Reports: Abdomen, Other (Right hemiscrotal pain right hemiscrotal pain ) Quality: Reports: Ache, Other Improves with: Reports: None (Patient is not able to quantify the pain.) Worsens with: Reports: Other (Sitting seems to make things worse.) Context: Denies: Activity, Exercise, Lifting, Sick Contact, Trauma, Other Associated Symptoms: Reports: Weakness. Denies: No Other Symptoms, Confusion, Chest Pain, Cough, cough w sputum, Diaphoresis, Fever/Chills, Headaches, Loss of Appetite, Malaise, Nausea/Vomiting, Rash, Seizure, Shortness of Breath, Syncope Treatments [employer]: Reports: Other (see below) - Related Data Allergies Allergy/AdvReac Type Severity Reaction Status Date / Time No Known Allergies Allergy Verified 04/10/18 15:46 Home Meds: Home Meds Acetaminophen [Tylenol] 650 mg PO Q6H PRN 04/26/18 [History] Allopurinol [Zyloprim] 100 mg PO DAILY 04/26/18 [History] Aspirin [Halfprin] 81 mg PO DAILY 04/26/18 [History] Cholecalciferol (Vitamin D3) [Vitamin D3] 1,000 unit PO DAILY 04/26/18 [History] Diltiazem HCl [Cardizem] 30 mg PO QID 04/26/18 [History] Fluconazole [Diflucan] 150 mg PO ASDIRECTED #2 tablet 04/26/18 [Rx] Furosemide [Lasix] 20 mg PO DAILY 04/26/18 [History] Furosemide [Lasix] 40 mg PO DAILY #30 tab 04/26/18 [Rx] Glimepiride [Amaryl] 2 mg PO DAILY 04/26/18 [History] Magnesium 400 mg PO DAILY 04/26/18 [History] Metoprolol Tartrate 100 mg PO Q12H 04/26/18 [History] Multivitamins with Iron/Min [Cerovite Jr] 1 tab PO DAILY 04/26/18 [History] Nitrofurantoin Monohyd/M-Cryst [Macrobid 100 mg Capsule] 100 mg PO BID #20 capsule 04/26/18 [Rx] Potassium Chloride 20 meq PO DAILY 04/26/18 [History] Saccharomyces Boulardii [Florastor] 250 mg PO DAILY 04/26/18 [History] Sennosides/Docusate Sodium [Senna Plus Tablet] 8.6 - 50 mg PO DAILY PRN [History] Tamsulosin [Flomax] 0.4 mg PO DAILY 04/26/18 [History] Zinc Acetate [Galzin] 50 mg PO DAILY 04/26/18 [History] atorvaSTATin Calcium [Lipitor] 40 mg PO DAILY 04/26/18 [History] Past Medical History Cardiovascular History: Reports: Heart Murmur, Hypertension Other Cardiovascular History: NSTEMI Genitourinary History: Reports: Renal Disease, Other (See Below) (Neurogenic bladder and thus requires a chronic Ramires catheter. 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), Other (See Below) Other Neuro History: encephalopathy Endocrine/Metabolic History: Reports: Diabetes, Type II (Controlled with both oral medications and insulin and diet.), Osteoporosis - Past Surgical History GI Surgical History: Reports: Hernia, Inguinal Social & Family History - Family History Family Medical History: Noncontributory - Tobacco Use Smoking Status *Q: Never Smoker - Caffeine Use Caffeine Use: Reports: Coffee - Recreational Drug Use Recreational Drug Use: No - Living Situation & Occupation Living situation: Reports: , Extended Care Facility Occupation: Retired ED ROS GENERAL - Review of Systems Review Of Systems: See Below Constitutional: Reports: Malaise, Weakness, Fatigue, Weight Loss. Denies: Fever , Chills HEENT: Reports: Glasses Respiratory: Reports: Shortness of Breath Cardiovascular: Reports: Blood Pressure Problem, Dyspnea on Exertion. Denies: Chest Pain Endocrine: Reports: Fatigue, High Glucose (Is a known type II diabetic. Fairly well controlled on current medications.) GI/Abdominal: Reports: Abdominal Pain (History of present illness suggest abdominal pain primarily right lower quadrant right scrotum for the last few days.) : Reports: Other (Neurogenic bladder since CVA. Has a chronic Ramires catheter. Has a large right inguinal hernia.) Musculoskeletal: Reports: Back Pain, Joint Pain (Knees hips lower back) Skin: Reports: No Symptoms Neurological: Reports: Difficulty Walking (Patient is nonambulatory. Wheelchair bound or bed bound.), Weakness, Other (Previous CVA with dense right hemiparesis which makes it into him unable to walk. He also has lost most of his ability to speak.). Denies: Headache, Numbness Psychiatric: Reports: No Symptoms Hematologic/Lymphatic: Reports: No Symptoms Immunologic: Reports: No Symptoms ED EXAM, GI/ABD - Physical Exam Exam: See Below Exam Limited By: Physical Impairment (Patient is unable to speak much but seems to understand commands. This is secondary to CVA with left brain involvement and dense right hemiparesis with loss of ability to speak.) General Appearance: Alert, No Apparent Distress, Other (Afebrile. He is mildly tachypnea At rest. O2 sats are 99% on room air.) Eyes: Bilateral: Pale Conjunctiva (Mildly pale conjunctiva.) Throat/Mouth: Normal Inspection, Normal Lips. No: Normal Teeth Head: Atraumatic, Normocephalic Neck: Limited Range of Motion (Has crepitus on movement of the neck suggesting underlying osteophytic changes. Particularly loss of 5 flexion and 10 extension.). No: Carotid Bruit, Lymphadenopathy (L), Lymphadenopathy (R) ( Shaylee lateral flexion bilaterally as well.), Thyromegaly Respiratory/Chest: Lungs Clear, Normal Breath Sounds, Respiratory Distress ( Tachypnea At rest. O2 sats are maintained and 99%), Decreased Breath Sounds Cardiovascular: Normal Peripheral Pulses (Breath sounds are mildly diminished to the lower 20% of lung sánchez posteriorly), Regular Rate, Rhythm, No Edema, No Gallop, No Murmur, No Rub GI/Abdominal Exam: No Distention, No Abnormal Bruit, No Mass, Pelvis Stable ( Bowel sounds are very hyperactive. Slightly tympanitic to percussion throughout in all 4 quadrants), Abnormal Bowel Sounds (Male) Exam: No Hernia (Patient has a large right inguinal hernia with bowel peristalsing in the right hemiscrotum. Bowel sounds are evident in the right hemiscrotum on exam.) Back Exam: Normal Inspection. No: CVA Tenderness (L), CVA Tenderness (R) Extremities: Normal Inspection, Normal Range of Motion, Non-Tender, No Pedal Edema Neurological: Alert, Oriented, Normal Cognition (Difficult to assess as he says no to most questions when in fact the answers should be yes. He has a speech deficit from previous CVA.), Other (Does not why he was transported to the hospital.) Psychiatric: Normal Affect Skin Exam: Warm, Dry, Intact, Other (Patient has multiple ecchymoses across his abdominal wall suspect at sites of insulin injection.) Course - Vital Signs Last Recorded V/S: Last Vital Signs Temp 36.8 C 04/26/18 12:40 Pulse 75 04/26/18 12:40 Resp 20 04/26/18 12:40 BP 152/76 H 04/26/18 12:40 Pulse Ox 99 04/26/18 12:40 - Orders/Labs/Meds Orders: Active Orders 24 hr Category Date Time Status EKG Documentation Completion [RC] STAT Care 04/26/18 13:05 Active Abdomen 1V Flat [CR] Stat Exams 04/26/18 13:10 Taken Chest 1V Frontal [CR] Stat Exams 04/26/18 13:05 Taken CALCIUM, IONIZED, SERUM [REF] Stat Lab 04/26/18 13:25 Received CULTURE URINE [RM] Stat Lab 04/26/18 13:05 Received URINALYSIS W/MICROSCOPIC [UA W/MICROSCOPIC] [URIN] Stat Lab 04/26/18 13:05 Ordered Labs: Laboratory Tests 04/26/18 04/26/18 04/26/18 Range/Units 13:05 13:25 13:25 WBC 9.79 H (4.23-9.07) K/mm3 RBC 3.84 L (4.63-6.08) M/mm3 Hgb 11.5 L (13.7-17.5) gm/L Hct 36.0 L (40.1-51.0) % MCV 93.8 H (79.0-92.2) fl MCH 29.9 (25.7-32.2) pg MCHC 31.9 L (32.2-35.5) g/dl RDW Std Deviation 47.2 H (35.1-43.9) fL Plt Count 234 (163-337) K/mm3 MPV 9.1 L (9.4-12.3) fl Neutrophils % (Manual) 91 H (40-60) % Band Neutrophils % 0 (0-10) % Lymphocytes % (Manual) 5 L (20-40) % Atypical Lymphs % 0 % Monocytes % (Manual) 1 L (2-10) % Eosinophils % (Manual) 3 (0.8-7.0) % Basophils % (Manual) 0 L (0.2-1.2) Platelet Estimate Adequate RBC Morph Comment Normal PT 12.4 H (9.5-12.1) SECONDS INR 1.14 APTT 26 (24-31) SECONDS Sodium (136-145) mEq/L Potassium (3.5-5.1) mEq/L Chloride (98-107) mEq/L Carbon Dioxide (21-32) mEq/L Anion Gap (5-15) BUN (7-18) mg/dL Creatinine (0.7-1.3) mg/dL Est Cr Clr Drug Dosing mL/min Estimated GFR (MDRD) (>60) mL/min BUN/Creatinine Ratio (14-18) Glucose (83-115) mg/dL Lactic Acid (0.4-2.0) mmol/L Calcium (8.5-10.1) mg/dL Magnesium (1.8-2.4) mg/dl Total Bilirubin (0.2-1.0) mg/dL AST (15-37) U/L ALT (16-63) U/L Alkaline Phosphatase (46-116) U/L C-Reactive Protein (<1.0) mg/dL NT-Pro-B Natriuret Pep (0-450) pg/mL Total Protein (6.4-8.2) g/dl Albumin (3.4-5.0) g/dl Globulin gm/dL Albumin/Globulin Ratio (1-2) Urine Color Yellow (Yellow) Urine Appearance Cloudy H (Clear) Urine pH 6.0 (5.0-8.0) Ur Specific [place] 1.025 (1.005-1.030) Urine Protein 2+ H (Negative) Urine Glucose (UA) Negative (Negative) Urine Ketones Negative (Negative) Urine Occult Blood 3+ H (Negative) Urine Nitrite Negative (Negative) Urine Bilirubin Negative (Negative) Urine Urobilinogen 0.2 (0.2-1.0) Ur Leukocyte Esterase 3+ H (Negative) Urine RBC Too numerous to cnt H (0-5) /hpf Urine WBC Too numerous to cnt H (0-5) /hpf Ur Epithelial Cells Not seen (0-5) /hpf Urine Bacteria Many H (FEW) /hpf Urine Mucus Many H (FEW) /hpf Urine Yeast Moderate H (NOT SEEN) Ur Yeast w Hyphae Moderate H (NOT SEEN) Urine Yeast (Budding) Moderate H (NOT SEEN) 04/26/18 04/26/18 04/26/18 Range/Units 13:25 13:25 13:25 WBC (4.23-9.07) K/mm3 RBC (4.63-6.08) M/mm3 Hgb (13.7-17.5) gm/L Hct (40.1-51.0) % MCV (79.0-92.2) fl MCH (25.7-32.2) pg MCHC (32.2-35.5) g/dl RDW Std Deviation (35.1-43.9) fL Plt Count (163-337) K/mm3 MPV (9.4-12.3) fl Neutrophils % (Manual) (40-60) % Band Neutrophils % (0-10) % Lymphocytes % (Manual) (20-40) % Atypical Lymphs % % Monocytes % (Manual) (2-10) % Eosinophils % (Manual) (0.8-7.0) % Basophils % (Manual) (0.2-1.2) Platelet Estimate RBC Morph Comment PT (9.5-12.1) SECONDS INR APTT (24-31) SECONDS Sodium 139 (136-145) mEq/L Potassium 5.0 (3.5-5.1) mEq/L Chloride 105 (98-107) mEq/L Carbon Dioxide 32 (21-32) mEq/L Anion Gap 7.0 (5-15) BUN 23 H (7-18) mg/dL Creatinine 1.2 (0.7-1.3) mg/dL Est Cr Clr Drug Dosing 41.73 mL/min Estimated GFR (MDRD) 57 (>60) mL/min BUN/Creatinine Ratio 19.2 H (14-18) Glucose 223 H (83-115) mg/dL Lactic Acid 1.6 (0.4-2.0) mmol/L Calcium 7.9 L (8.5-10.1) mg/dL Magnesium 1.8 (1.8-2.4) mg/dl Total Bilirubin 0.3 (0.2-1.0) mg/dL AST 43 H (15-37) U/L ALT 54 (16-63) U/L Alkaline Phosphatase 251 H (46-116) U/L C-Reactive Protein 1.1 H* (<1.0) mg/dL NT-Pro-B Natriuret Pep 2708 H (0-450) pg/mL Total Protein 5.2 L (6.4-8.2) g/dl Albumin 2.0 L (3.4-5.0) g/dl Globulin 3.2 gm/dL Albumin/Globulin Ratio 0.6 L (1-2) Urine Color (Yellow) Urine Appearance (Clear) Urine pH (5.0-8.0) Ur Specific [place] (1.005-1.030) Urine Protein (Negative) Urine Glucose (UA) (Negative) Urine Ketones (Negative) Urine Occult Blood (Negative) Urine Nitrite (Negative) Urine Bilirubin (Negative) Urine Urobilinogen (0.2-1.0) Ur Leukocyte Esterase (Negative) Urine RBC (0-5) /hpf Urine WBC (0-5) /hpf Ur Epithelial Cells (0-5) /hpf Urine Bacteria (FEW) /hpf Urine Mucus (FEW) /hpf Urine Yeast (NOT SEEN) Ur Yeast w Hyphae (NOT SEEN) Urine Yeast (Budding) (NOT SEEN) - Radiology Interpretation Free Text/Narrative:: 88-year-old male brought to the ED from [facility] for unclear reason. She was identified in clinic yesterday to have a chronic inguinal hernia on the right side. An ultrasound report today reveals bowel within this right hemiscrotum which is evident on clinical examination. There are bowel sounds in the right hemiscrotum. I can see no redness or evidence of fullness in the area. Apparently he's had a long standing right inguinal hernia which she did not want repaired in the past. Apparently he's been complaining of pain in the area for the last 2 days which precipitated the above investigations. She is afebrile. He has some tenderness to palpation in the right hemiscrotum and I am unable to reduce the hernia. I suspect it is chronic. The question whether or not there is acute incarceration that would warrant emergent surgery. I suspect this is not the case. I will plan on doing routine labs that would prepare the patient for surgery case it is required. One view abdomen will be done. Have an ECG one view chest x-ray and preoperative investigations to see if he's a candidate for surgery here. - Re-Assessments/Exams Free Text/Narrative Re-Assessment/Exam: 04/26/18 13:58 chest x-ray done portable reveals a elevated left hemidiaphragm with an infiltrate superior to this. This infiltrate is chronic dating back at least 3 months. Unclear if this is a combination of basilar atelectasis versus a small pleural effusion. I question whether or not there may be a component of hiatal hernia in the chest as well. The heart is mildly enlarged. There is mild diffuse vascular congestion pattern. KUB reveals gas throughout the small and large bowel without any signs of obstruction. Interesting there is bowel gas present in the right hemiscrotum on ultrasound as well. 04/26/18 14:27 Labs are back. Initial white count of 9.79 with 91% neutrophils and no bands. Hemoglobin is 11.5 with a hematocrit of 36.0. Platelet count is 10 34,000. PT is 12.4 with an INR of 1.14. PTT is 26. Sodium was 139 with a potassium of 5.0. Chloride is 105 with a bicarbonate of 32. Anion gap is 7.0. BUN is 23 with a creatinine of 1.2. GFR is estimated to be 57. Glucose at 223. Lactic acid 1.6. Calcium low at 7.9. Magnesium 1.8. Bilirubin is 0.3 AST is minimally elevated at 43. ALT normal at 54 of phosphatase elevated at 251 remember the patient does have a diagnosis of Paget's disease. Is 1.1. BNP is elevated at 2708. Analysis shows 2+ protein 3+ call blood on the dip. The micro- shows 3+ leukocyte esterase with too numerous to count RBCs and too numerous to count WBCs with many bacteria identified and occasional moderate East. He spreads also appreciated. Of note he has a chronic indwelling Ramires catheter. 04/26/18 14:[address] De La Cruz clinical research monitor surgeon to see this patient in consultation to obtain his opinion as to whether or not he requires urgent/ emergent surgery for bowel in his right hemiscrotum. I cannot get a firm history from the family that he had in the large hernia that actually contained bowel. He has had a known inguinal hernia for a long period of time. With his other comorbidities he if he requires surgery would be better served in a larger center. He has evidence of congestive heart failure with an elevated BNP. He is currently hypocalcemic as well. Is anesthesia risk is therefore quite high. He has a significant urinary tract infection likely of significant chronicity with associated candidiasis in the urinary tract.. 04/26/18 15:[address] De La Cruz and the family decision made to [facility] the [facility]. If he develops signs and symptoms of the of GI obstruction i.e. not passing flatus not passing stool and developing increased abdominal bloating with nausea and vomiting then he needs to return for urgent surgery. At this point time I feel the bowel in the right inguinal hernia is chronic and at this time there is no evidence of incarceration or need for emergent operation. He needs to increase dosage of Lasix to 40 mg in the morning and 20 mg in the afternoon to bring his congestive heart failure under better control. Once his serum potassium has been lowered he may benefit from low-dose Aldactone as well. Consideration of use of low-dose digoxin to improve his left ventricular wall function and control his atrial fib rate and perhaps getting him off the calcium channel onelia could be entertained as well. He will require an antibiotic to clear up his current urinary tract infection as well as Diflucan 150 mg today and repeat in a week's time to help clear up urinary tract candidiasis identified on urinalysis today. To my understanding the Ramires catheter was just reintroduced within the last week and therefore his time I do not feel that changing out the catheter is warranted. However repeat urinalysis shows candidiasis the catheter needs to be removed and repeat treatment for candidiasis the urinary tract. Also it's unclear of his hypocalcemia is chronic versus him not eating well the last few days or deserve treatment with calcium supplementation. 04/26/18 15:35: Spoke with Dr. Bryan patient's usual care provider and made him aware of the findings today. Change in medications and need to be seen in about 7-10 days time. He indicates that the right hemiscrotum is contained bowel for a long period of time confirming our clinical suspicion. Will be discharge back to [facility] Departure - Departure Time of Disposition: 15:08 Disposition: DC/Tfer to [facility] Condition: Fair Clinical Impression: CHF (congestive heart failure), NYHA class III, Hypocalcemia, Inguinal hernia, UTI, Urinary tract infectious disease, Leukocytosis - Discharge Information *PRESCRIPTION DRUG MONITORING PROGRAM REVIEWED*: Not Applicable *COPY OF PRESCRIPTION DRUG MONITORING REPORT IN PATIENT MIGUEL: Not Applicable Prescriptions: Fluconazole [Diflucan] 150 mg PO ASDIRECTED #2 tablet Furosemide [Lasix] 40 mg PO DAILY #30 tab Nitrofurantoin Monohyd/M-Cryst [Macrobid 100 mg Capsule] 100 mg PO BID #20 capsule Instructions: Inguinal Hernia, Adult, [id number] Referrals: Kevin Bryan MD [Primary Care Provider] - Forms: ED Department Discharge Additional Instructions: Evaluation the emergency room today in regards to right inguinal hernia which contains bowel. I suspect this is a chronic problem and nothing new. On lab or Praveen assessment as well as examination there is no clinical evidence of an acute incarceration of bowel within the right hemiscrotum that deserves emergent surgery. Surgical consultation was obtained through the ED and Dr. Hernandez local monitored call surgeon also agrees that at this point time surgery is not indicated. Things to watch out for were be nausea and vomiting. Increased abdominal girth indicating obstruction increased pain in the right groin and not passing flatus or stool would be an indication to return him immediately to the hospital. Other problems identified were significant congestive heart failure with a BNP of greater than 2700. He requires an increased dose in his Lasix to 40 mg in the morning and 20 mg in the p.m. for the next week and then leave him on 40 mg once daily every morning until further assessment with Dr. Bryan. Secondly he has a definite urinary tract infection. Suggest use of Macrobid 100 mg twice daily for the next 10 days. He also has significant candidiasis of the urinary tract due to chronic indwelling Ramires. Needs Diflucan tablet 150 mg now and repeat in one week's time. Just follow-up with Dr. Bryan in 7-10 days time for reassessment of heart function and lab work to include renal function and serum potassium and serum calcium levels. - My Orders Last 24 Hours: My Active Orders 04/26/18 13:05 EKG Documentation Completion [RC] STAT Chest 1V Frontal [CR] Stat CULTURE URINE [RM] Stat URINALYSIS W/MICROSCOPIC [UA W/MICROSCOPIC] [URIN] Stat 04/26/18 13:10 Abdomen 1V Flat [CR] Stat 04/26/18 13:25 CALCIUM, IONIZED, SERUM [REF] Stat - Assessment/Plan Last 24 Hours: My Active Orders 04/26/18 13:05 EKG Documentation Completion [RC] STAT Chest 1V Frontal [CR] Stat CULTURE URINE [RM] Stat URINALYSIS W/MICROSCOPIC [UA W/MICROSCOPIC] [URIN] Stat 04/26/18 13:10 Abdomen 1V Flat [CR] Stat 04/26/18 13:25 CALCIUM, IONIZED, SERUM [REF] Stat
--- NOTE | 2018-04-26 15:17 | PCM.CONS ---
H&P History of Present Illness - General Date of Service: 04/26/18 Source of Information: Family, Provider History Limitations: Reports: Altered Mental Status - History of Present Illness Initial Comments - Free Text/Narative: 88 yo male, history of multiple medical problems, reliant on halfway care, was transferred from a SNF to the ER due to the discovery of a large swelling in the scrotum. Work-up identified a large bowel-containing groin hernia extending into the scrotum. I was consulted for surgical evaluation. The patient 's two daughters were present. The patient could not be provide adequate history due to baseline confusion, and was unable to answer my questions. While at the SNF, he has been eating and drinking without difficulty, with normal bowel movements. No nausea/emesis. He was recently hospitalized in the ICU. - Related Data Allergies/Adverse Reactions: Allergies Allergy/AdvReac Type Severity Reaction Status Date / Time No Known Allergies Allergy Verified 04/10/18 15:46 Home Medications: Home Meds Acetaminophen [Tylenol] 650 mg PO Q6H PRN 04/26/18 [History] Allopurinol [Zyloprim] 100 mg PO DAILY 04/26/18 [History] Aspirin [Halfprin] 81 mg PO DAILY 04/26/18 [History] Cholecalciferol (Vitamin D3) [Vitamin D3] 1,000 unit PO DAILY 04/26/18 [History] Diltiazem HCl [Cardizem] 30 mg PO QID 04/26/18 [History] Fluconazole [Diflucan] 150 mg PO ASDIRECTED #2 tablet 04/26/18 [Rx] Furosemide [Lasix] 20 mg PO DAILY 04/26/18 [History] Furosemide [Lasix] 40 mg PO DAILY #30 tab 04/26/18 [Rx] Glimepiride [Amaryl] 2 mg PO DAILY 04/26/18 [History] Magnesium 400 mg PO DAILY 04/26/18 [History] Metoprolol Tartrate 100 mg PO Q12H 04/26/18 [History] Multivitamins with Iron/Min [Cerovite Jr] 1 tab PO DAILY 04/26/18 [History] Nitrofurantoin Monohyd/M-Cryst [Macrobid 100 mg Capsule] 100 mg PO BID #20 capsule 04/26/18 [Rx] Potassium Chloride 20 meq PO DAILY 04/26/18 [History] Saccharomyces Boulardii [Florastor] 250 mg PO DAILY 04/26/18 [History] Sennosides/Docusate Sodium [Senna Plus Tablet] 8.6 - 50 mg PO DAILY PRN [History] Tamsulosin [Flomax] 0.4 mg PO DAILY 04/26/18 [History] Zinc Acetate [Galzin] 50 mg PO DAILY 04/26/18 [History] atorvaSTATin Calcium [Lipitor] 40 mg PO DAILY 04/26/18 [History] Past Medical History Cardiovascular History: Reports: Heart Murmur, Hypertension Other Cardiovascular History: NSTEMI Genitourinary History: Reports: Renal Disease, Other (See Below) (Neurogenic bladder and thus requires a chronic Ramires catheter. 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), Other (See Below) Other Neuro History: encephalopathy Endocrine/Metabolic History: Reports: Diabetes, Type II (Controlled with both oral medications and insulin and diet.), Osteoporosis - Past Surgical History GI Surgical History: Reports: Hernia, Inguinal Social & Family History - Family History Family Medical History: Noncontributory - Tobacco Use Smoking Status *Q: Never Smoker - Caffeine Use Caffeine Use: Reports: Coffee - Recreational Drug Use Recreational Drug Use: No - Living Situation & Occupation Living situation: Reports: , Extended Care Facility Occupation: Retired H&P Review of Systems - Review of Systems: Review Of Systems: Unable To Obtain Exam - Exam Exam: See Below - Vital Signs Vital Signs: Last Vital Signs Temp 36.8 C 04/26/18 12:40 Pulse 75 04/26/18 12:40 Resp 20 04/26/18 12:40 BP 152/76 H 04/26/18 12:40 Pulse Ox 99 04/26/18 12:40 Weight: 77.111 kg - Exam Lungs: Clear to Auscultation, Normal Respiratory Effort Cardiovascular: Normal S1, Normal S2, Irregular Rhythm. No: Systolic Murmur GI/Abdominal Exam: Other (Difficulty to assess for tenderness, given patient's mental status. No distention. Large RIGHT inguinal hernia with bowel in the scrotal sac with audible bowel sounds. Non-reducible. No skin changes.) (Male) Exam: Other (indwelling urinary catheter) Extremities: Normal Inspection Neuro Extensive - Mental Status: Disorientation to Person, Disorientation to Place, Disorientation to Time, Slow Response to Commands - Patient Data Lab Results Last 24 hrs: Laboratory Results - last 24 hr 04/26/18 04/26/18 04/26/18 Range/Units 13:05 13:25 13:25 WBC 9.79 H (4.23-9.07) K/mm3 RBC 3.84 L (4.63-6.08) M/mm3 Hgb 11.5 L (13.7-17.5) gm/L Hct 36.0 L (40.1-51.0) % MCV 93.8 H (79.0-92.2) fl MCH 29.9 (25.7-32.2) pg MCHC 31.9 L (32.2-35.5) g/dl RDW Std Deviation 47.2 H (35.1-43.9) fL Plt Count 234 (163-337) K/mm3 MPV 9.1 L (9.4-12.3) fl Neutrophils % (Manual) 91 H (40-60) % Band Neutrophils % 0 (0-10) % Lymphocytes % (Manual) 5 L (20-40) % Atypical Lymphs % 0 % Monocytes % (Manual) 1 L (2-10) % Eosinophils % (Manual) 3 (0.8-7.0) % Basophils % (Manual) 0 L (0.2-1.2) Platelet Estimate Adequate RBC Morph Comment Normal PT 12.4 H (9.5-12.1) SECONDS INR 1.14 APTT 26 (24-31) SECONDS Sodium (136-145) mEq/L Potassium (3.5-5.1) mEq/L Chloride (98-107) mEq/L Carbon Dioxide (21-32) mEq/L Anion Gap (5-15) BUN (7-18) mg/dL Creatinine (0.7-1.3) mg/dL Est Cr Clr Drug Dosing mL/min Estimated GFR (MDRD) (>60) mL/min BUN/Creatinine Ratio (14-18) Glucose (83-115) mg/dL Lactic Acid (0.4-2.0) mmol/L Calcium (8.5-10.1) mg/dL Magnesium (1.8-2.4) mg/dl Total Bilirubin (0.2-1.0) mg/dL AST (15-37) U/L ALT (16-63) U/L Alkaline Phosphatase (46-116) U/L C-Reactive Protein (<1.0) mg/dL NT-Pro-B Natriuret Pep (0-450) pg/mL Total Protein (6.4-8.2) g/dl Albumin (3.4-5.0) g/dl Globulin gm/dL Albumin/Globulin Ratio (1-2) Urine Color Yellow (Yellow) Urine Appearance Cloudy H (Clear) Urine pH 6.0 (5.0-8.0) Ur Specific [place] 1.025 (1.005-1.030) Urine Protein 2+ H (Negative) Urine Glucose (UA) Negative (Negative) Urine Ketones Negative (Negative) Urine Occult Blood 3+ H (Negative) Urine Nitrite Negative (Negative) Urine Bilirubin Negative (Negative) Urine Urobilinogen 0.2 (0.2-1.0) Ur Leukocyte Esterase 3+ H (Negative) Urine RBC Too numerous to cnt H (0-5) /hpf Urine WBC Too numerous to cnt H (0-5) /hpf Ur Epithelial Cells Not seen (0-5) /hpf Urine Bacteria Many H (FEW) /hpf Urine Mucus Many H (FEW) /hpf Urine Yeast Moderate H (NOT SEEN) Ur Yeast w Hyphae Moderate H (NOT SEEN) Urine Yeast (Budding) Moderate H (NOT SEEN) 04/26/18 04/26/18 04/26/18 Range/Units 13:25 13:25 13:25 WBC (4.23-9.07) K/mm3 RBC (4.63-6.08) M/mm3 Hgb (13.7-17.5) gm/L Hct (40.1-51.0) % MCV (79.0-92.2) fl MCH (25.7-32.2) pg MCHC (32.2-35.5) g/dl RDW Std Deviation (35.1-43.9) fL Plt Count (163-337) K/mm3 MPV (9.4-12.3) fl Neutrophils % (Manual) (40-60) % Band Neutrophils % (0-10) % Lymphocytes % (Manual) (20-40) % Atypical Lymphs % % Monocytes % (Manual) (2-10) % Eosinophils % (Manual) (0.8-7.0) % Basophils % (Manual) (0.2-1.2) Platelet Estimate RBC Morph Comment PT (9.5-12.1) SECONDS INR APTT (24-31) SECONDS Sodium 139 (136-145) mEq/L Potassium 5.0 (3.5-5.1) mEq/L Chloride 105 (98-107) mEq/L Carbon Dioxide 32 (21-32) mEq/L Anion Gap 7.0 (5-15) BUN 23 H (7-18) mg/dL Creatinine 1.2 (0.7-1.3) mg/dL Est Cr Clr Drug Dosing 41.73 mL/min Estimated GFR (MDRD) 57 (>60) mL/min BUN/Creatinine Ratio 19.2 H (14-18) Glucose 223 H (83-115) mg/dL Lactic Acid 1.6 (0.4-2.0) mmol/L Calcium 7.9 L (8.5-10.1) mg/dL Magnesium 1.8 (1.8-2.4) mg/dl Total Bilirubin 0.3 (0.2-1.0) mg/dL AST 43 H (15-37) U/L ALT 54 (16-63) U/L Alkaline Phosphatase 251 H (46-116) U/L C-Reactive Protein 1.1 H* (<1.0) mg/dL NT-Pro-B Natriuret Pep 2708 H (0-450) pg/mL Total Protein 5.2 L (6.4-8.2) g/dl Albumin 2.0 L (3.4-5.0) g/dl Globulin 3.2 gm/dL Albumin/Globulin Ratio 0.6 L (1-2) Urine Color (Yellow) Urine Appearance (Clear) Urine pH (5.0-8.0) Ur Specific [place] (1.005-1.030) Urine Protein (Negative) Urine Glucose (UA) (Negative) Urine Ketones (Negative) Urine Occult Blood (Negative) Urine Nitrite (Negative) Urine Bilirubin (Negative) Urine Urobilinogen (0.2-1.0) Ur Leukocyte Esterase (Negative) Urine RBC (0-5) /hpf Urine WBC (0-5) /hpf Ur Epithelial Cells (0-5) /hpf Urine Bacteria (FEW) /hpf Urine Mucus (FEW) /hpf Urine Yeast (NOT SEEN) Ur Yeast w Hyphae (NOT SEEN) Urine Yeast (Budding) (NOT SEEN) Result Diagrams: 04/26/18 13:25 04/26/18 13:25 Consult PN Assessment/Plan Procedures: Procedures AGENT NOS ASSAY W/OPTIC (04/10/18) AIRWAY INHALATION TREATMENT (04/10/18) ASSAY OF FREE THYROXINE (04/01/18) ASSAY OF LACTIC ACID (04/10/18) ASSAY OF LIPASE (04/01/18) ASSAY OF MAGNESIUM (04/10/18) ASSAY OF NATRIURETIC PEPTIDE (04/10/18) ASSAY OF TROPONIN QUANT (04/01/18) ASSAY THYROID STIM HORMONE (04/10/18) BLOOD CULTURE FOR BACTERIA (04/10/18) C DIFF AMPLIFIED PROBE (04/10/18) C-REACTIVE PROTEIN (04/10/18) COMPLETE CBC W/AUTO DIFF WBC (04/10/18) COMPREHEN METABOLIC PANEL (04/01/18) CT HEAD/BRAIN W/O DYE (04/01/18) ELECTROCARDIOGRAM TRACING (04/10/18) EMERGENCY DEPT VISIT (04/10/18) EVALUATE SWALLOWING FUNCTION (04/10/18) GLUCOSE BLOOD TEST (04/10/18) GLYCOSYLATED HEMOGLOBIN TEST (04/10/18) HYDRATE IV INFUSION ADD-ON (04/10/18) INSERT BLADDER CATHETER (04/10/18) INSERT TEMP BLADDER CATH (04/10/18) METABOLIC PANEL TOTAL CA (04/10/18) MYCOPLASMA ANTIBODY (04/10/18) OT EVAL HIGH COMPLEX 60 MIN (04/10/18) PROTHROMBIN TIME (04/01/18) PT EVAL MOD COMPLEX 30 MIN (04/10/18) ROUTINE VENIPUNCTURE (04/10/18) THER/PROPH/DIAG INJ IV PUSH (04/01/18) THER/PROPH/DIAG IV INF INIT (04/10/18) THERAPEUTIC ACTIVITIES (04/10/18) THERAPEUTIC EXERCISES (04/10/18) URINALYSIS AUTO W/SCOPE (04/10/18) URINE CULTURE/COLONY COUNT (04/10/18) US URINE CAPACITY MEASURE (04/10/18) X-RAY EXAM CHEST 1 VIEW (04/10/18) (1) Incarcerated right inguinal hernia SNOMED Code(s): 657229096 Code(s): K40.30 - UNIL INGUINAL HERNIA, W OBST, W/O GANGR, NOT SPCF RECUR Problem List Initiated/Reviewed/Updated: Yes Plan: 88 yo male, history of multiple medical problems, including DM2, afib, ARF, recent hemorrhagic stroke, in long-term nursing facility, recent ICU admission ( for mental status change, afib with RVR, HCAP), presents with a large bowel- containing inguinal hernia, incarcerated (unsure if chronic), without evidence of strangulation. Extensive discussion with the patient's daughters regarding the treatment options. One of the two daughters is the patient's medical decision maker. Explained that given the patient's age and multiple significant medical problems, the risk of perioperative complications is high. At this point , it is unclear how symptomatic the patient is from the hernia, if at all. There is no concern for strangulation at this time, so there is no need for emergent surgical intervention. If surgery is pursued, the patient would best be served in a facility with a higher level of care (i.e. [facility]). After an extensive discussion with his family members, and also with Dr. De Los Santos , physician, the family decided to not pursue surgical intervention at this time, and to have the patient return to the long-term nursing facility. Return precautions were given. Cem Matthews M.D., F.A.C.S. General Surgery Pager: [phone]
--- NOTE | 2018-04-30 07:48 | CR ---
Abdomen: Supine view of the abdomen was obtained. Severe joint space narrowing is noted within the left hip. Endplate spurring is scattered within the spine. Lesser joint space narrowing within the right hip is seen. Vascular calcification is noted. Bowel shows no dilatation. Bowel gas is noted within the scrotal sac compatible with right inguinal hernia. Impression: 1. Bowel gas within the scrotal sac compatible with right inguinal hernia. No bowel dilatation is seen. 2. Other incidental findings. Diagnostic code #3
--- NOTE | 2018-04-30 07:48 | CR ---
Chest: Portable view of the chest was obtained. Comparison: Prior chest x-ray of 04/13/18. Increased density within the left base is seen. Elevated left hemidiaphragm is seen. Lungs otherwise are clear. Heart is enlarged. Degenerative spurring is noted within the spine. Abnormal mineralization of the left scapula is seen which appears as a stable finding. Impression: 1. Increased density within the left lung base which could represent atelectasis or less likely pneumonia. 2. Stable cardiomegaly and other stable findings. Diagnostic code #3
== END 2018-04-26 16:40 ==
LOC: JD.ED 12:28
DX: K40.90 Unilateral inguinal hernia, without obstruction or gangrene, not specified as recurrent (principal); E11.9 Type 2 diabetes mellitus without complications; I11.0 Hypertensive heart disease with heart failure; I50.9 Heart failure, unspecified; E83.51 Hypocalcemia; N39.0 Urinary tract infection, site not specified; D72.829 Elevated white blood cell count, unspecified
CPT/HCPCS: 36415; 71045; 71045-26; 74018; 74018-26; 80053; 81001; 82330; 83605; 83735; 83880; 85007; 85027; 85610; 85730; 86140; 87086; 93005; 93010; 99285-25